=== PATIENT | female | born 1950 | race Caucasian/White ===

== ENCOUNTER → 2017-07-27 10:07 | Outpatient (CLI) | payer MEDICARE, OTHER, SELFPAY ==
--- NOTE | 2017-07-27 10:07 | DT_ITS ---
This patient was seen during an EMR downtime July 27, 2017 - August 03, 2017. This patient may have a combination of paper and electronic documentation or all paper documentation. All documentation is viewable within the e-chart portion of [facility] for each patient visit.
[2017-08-02 09:23] LABS: Anion Gap 8 (5-15); BUN 17 mg/dL (7-18); BUN/Creat Ratio 21.5 RATIO (10-20); Calcium,Total 8.7 mg/dL (8.5-10.1); Chloride 106 mmol/L (98-107); Creatinine, Serum 0.79 mg/dL (0.55-1.02); EST Glomerular Filtration Rate 77 mL/min (>60); Est Glom Filt Rate - Afr Amer 93 mL/min (>60); Glucose 88 mg/dL (74-106); Sodium Level 141 mmol/L (136-145)
== END ==
PROVIDERS: Family Provider Family Medicine; PCP Family Medicine; Visit Provider Family Medicine
DX: I10 Essential (primary) hypertension (principal)
CPT/HCPCS: 36415; 80048

== ENCOUNTER → 2018-01-27 10:05 | Outpatient (CLI) | payer MEDICARE, OTHER, SELFPAY ==
[2018-01-27 12:27] LABS: AST(SGOT) 18 U/L (15-37); Alanine Aminotransfer ALT/SGPT 21 U/L (13-56); Albumin, Serum 3.7 g/dL (3.2-5.0); Alkaline Phosphatase 73 U/L (45-117); Anion Gap 8 (5-15); BUN 16 mg/dL (7-18); BUN/Creat Ratio 20.2 RATIO (10-20); Chloride 108 mmol/L (98-107); Creatinine, Serum 0.79 mg/dL (0.55-1.02); EST Glomerular Filtration Rate 76 mL/min (>60); Est Glom Filt Rate - Afr Amer 92 mL/min (>60); Globulin 3.6 g/dL (2.2-4.2); Glucose 89 mg/dL (74-106); Potassium 4.1 mmol/L (3.5-5.1); Protein, Total 7.3 g/dL (6.4-8.2); Sodium Level 142 mmol/L (136-145)
[2018-01-29 11:56] LABS: C-Peptide 3.8 ng/mL (1.1-4.4)
== END ==
PROVIDERS: Family Provider Family Medicine; PCP Family Medicine; Visit Provider Family Medicine
DX: E78.5 Hyperlipidemia, unspecified (principal); I10 Essential (primary) hypertension
CPT/HCPCS: 36415; 80048; 80076; 84681

== ENCOUNTER → 2018-12-27 14:51 | Outpatient (CLI) | payer MEDICARE, OTHER, SELFPAY ==
[2018-12-27 17:03] LABS: Vitamin D,25 Hydroxy 50.9 ng/mL (29.95-100.01)
== END ==
PROVIDERS: Family Provider Family Medicine; PCP Family Medicine; Referring Provider Nurse Practitioner Family; Visit Provider Nurse Practitioner Family
DX: E55.9 Vitamin D deficiency, unspecified (principal)
CPT/HCPCS: 36415; 82306

== ENCOUNTER → 2019-01-26 10:48 | Outpatient (CLI) | payer MEDICARE, OTHER, SELFPAY ==
[2019-01-26 13:13] LABS: ALB/GLOB Ratio 1.2 RATIO (0.9-2.4); AST(SGOT) 19 U/L (15-37); Alanine Aminotransfer ALT/SGPT 19 U/L (13-56); Albumin, Serum 4.1 g/dL (3.2-5.0); Alkaline Phosphatase 72 U/L (45-117); Anion Gap 7 (5-15); BUN 19 mg/dL (7-18); Calcium,Total 8.9 mg/dL (8.5-10.1); Chloride 107 mmol/L (98-107); Cholesterol 179 mg/dL (200); EST Glomerular Filtration Rate 58 mL/min (>60); Est Glom Filt Rate - Afr Amer 71 mL/min (>60); Globulin 3.5 g/dL (2.2-4.2); Glucose 89 mg/dL (74-106); High Density Lipoprotein 65 mg/dL; Potassium 4.6 mmol/L (3.5-5.1); Protein, Total 7.6 g/dL (6.4-8.2); Sodium Level 139 mmol/L (136-145); Triglycerides 140 mg/dL; Very Low Density Lipoprotein 28 mg/dL (5-40)
== END ==
PROVIDERS: Family Provider Family Medicine; PCP Family Medicine; Referring Provider Family Medicine; Visit Provider Family Medicine
DX: E78.5 Hyperlipidemia, unspecified (principal)
CPT/HCPCS: 36415; 80053; 80061

== ENCOUNTER 2020-06-24 13:29 | Emergency (ER) | payer MEDICARE, OTHER, SELFPAY ==
[2020-06-24 13:31] VITALS: BP 135/104; PULSE 90; RESP 16; TEMP 37.3; O2SAT 94; BMI 39.0
--- NOTE | 2020-06-24 13:50 | RAD_ITS ---
STUDY: X-RAY CHEST REASON FOR EXAM: Female, 70 years old. Dyspnea TECHNIQUE: Single AP portable view of the chest. COMPARISON: None. FINDINGS: The lungs are clear and expanded. There is no demonstrated pleural abnormality. Normal size heart. Normal mediastinum and concepcion. Normal visualized pulmonary arteries. There is atherosclerotic calcification of the aortic arch with tortuosity. Degenerative changes in the visualized thoracic spine. Normal visualized ribs, clavicles, and shoulders. There is no demonstrated abnormality of the visualized soft tissue structures of the upper abdomen. RAD/Chest 1 View (Portable) IMPRESSION: No active pulmonary disease. Electronically Signed: Hany Miller MD at 15:15 EDT Tel , Service support ,
--- NOTE | 2020-06-24 13:50 | EKG12_ITS ---
Test Reason : ANXIETY Blood Pressure : / mmHG Vent. Rate : 074 BPM Atrial Rate : 074 BPM P-R Int : 152 ms QRS Dur : 094 ms QT Int : 402 ms P-R-T Axes : 043 -31 -04 degrees QTc Int : 446 ms Normal sinus rhythm with sinus arrhythmia Left axis deviation Abnormal ECG Confirmed by CELSO MARCANO, JELENA ([id number]), material expeditor CHERRI KHALIL ([id number]) on 06/27/2020 8:50:11 AM Referred By: SHAYE Confirmed By:JELENA HOUSTON MD
--- NOTE | 2020-06-24 13:52 | EX.ED.DYSGE1 ---
HPI History of Present Illness Chief Complaint: Anxiety Informant: patient Onset/Context/Timing Onset: Weeks (3) Quality: Suffocating Location: Generalized Worsened by: Stress Relieved by: Nothing Associated Symptoms Associated Symptoms: Decreased sleep Narrative Narrative: Patient presents with increasing anxiety over the past 3 weeks. Patient states her brother 3 weeks ago. Patient states her anxiety has gradually gotten worse. Patient states she has been having difficulty sleeping over the past week. Patient states when she lays flat she feels like she is suffocating. Patient states that there have been other stressors which has caused her to feel anxious and suffocating. Patient states nothing seems to help. Patient states she called the counseling center who referred her to the emergency department. [facility] Medical History Hypersomnia Hypertension Home Medications armodafinil 250 mg PO DAILY 06/24/20 [History Last Taken Unknown] cephalexin 500 mg PO Q6 #12 capsule 06/24/20 [Rx Last Taken Unknown] hydroxyzine pamoate 25 mg PO QHS PRN PRN #10 capsule 06/24/20 [Rx Last Taken Unknown] lisinopril 10 mg PO BID 06/24/20 [History Last Taken Unknown] metoprolol succinate 50 mg PO BID 06/24/20 [History Last Taken Unknown] Allergy/AdvReac Type Severity Reaction Status Date / Time No Known Allergies Allergy Verified 06/24/20 13:29 no surgical history Social History Smoking Status: Never smoker ROS ROS ED Constitutional Constitutional ED: Denies chills or fever(s) Eyes Eyes: Reports blurry vision; Denies diplopia ENT ENT ED: Denies rhinorrhea or sore throat Cardiovascular Cardiovascular: Denies chest pain or palpitations Respiratory/Chest Respiratory/Chest: Reports dyspnea; Denies cough Gastrointestinal Gastrointestinal: Denies nausea or vomiting Genitourinary Genitourinary ED: Reports urinary frequency; Denies dysuria or hematuria Musculoskeletal Musculoskeletal: Denies back pain or neck pain Integumentary Denies abscess or rash Neurologic Neurologic: Reports headache(s); Denies weakness Psychiatric Psychiatric: Reports anxiety Allergic/Immunologic Allergic/Immunologic ED: Denies mouth swelling or urticaria EXAM Physical Exam Const Vital Signs: 06/24/20 13:31 06/24/20 15:44 Temperature 99.1 F Temperature Source Temporal Pulse Rate 90 81 Respiratory Rate 16 16 Blood Pressure 135/104 H 156/89 H Blood Pressure Mean 114 111 Pulse Ox 94 96 Oxygen Delivery Method Room Air Room Air Positive well nourished, well developed and obese General Appearance ED: well developed Nutritional Appearance: obese HEENT Reports moist mucous membranes Neck supple and no JVD Resp normal respiratory effort and clear to auscultation bilaterally Cardio regular rate and regular rhythm GI normal to inspection, nondistended, normoactive bowel sounds and non-tender Palpation: soft Neuro oriented x3, CN's II-XII intact bilaterally and no sensory deficits noted Sensorium / Orientation: alert Motor Exam: strength 5/5 throughout Psych mental status grossly normal Mood & Affect: anxious and tearful MDM MDM MDM Narrative Medical decision making narrative: CBC and comprehensive metabolic profile were obtained and were within normal limits. PT with INR and PTT were normal. Portable 1 view chest x-ray was obtained. On my interpretation, lung whitney are clear. There is normal cardiac silhouette. Bony thorax is normal. There is no acute process noted. Radiologist also interpreted the x-ray and agrees. D-dimer was slightly elevated at 0.72. Because of this CTA of the chest was obtained. There is no evidence of pulmonary embolism. There is no acute infiltrate. Urinalysis showed leukocyte esterase of 500 with positive nitrites and 5-10 white blood cells and 1+ bacteria. Patient was given a prescription for a short course of Keflex. Patient was also given a prescription for a short course of Vistaril to take at bedtime to help with sleep. Patient was instructed to follow-up with her primary care physician in 3 to 5 days. Patient understood and was agreeable with the plan. All questions were answered. Lab Data Attestation: I reviewed the patient's lab results. Labs: Laboratory Results - last 24 hr 06/24/20 06/24/20 06/24/20 13:55 14:10 14:10 WBC 6.5 RBC 4.36 Hgb 13.4 Hct 41.4 MCV 95.0 MCH 30.7 MCHC 32.4 RDW Std Deviation 47.5 H RDW Coeff of Daija 13.5 Plt Count 259 MPV 9.9 Immature Gran % (Auto) 0.300 Neut % (Auto) 69.2 Lymph % (Auto) 21.9 [place] % (Auto) 8.0 Eos % (Auto) 0.3 Baso % (Auto) 0.3 Absolute Neuts (auto) 4.5 Absolute Lymphs (auto) 1.43 Nucleated RBC % 0 PT 12.7 INR 1.0 APTT 27.5 D-Dimer Quant (PE/DVT) 0.72 H* Sodium Potassium Chloride Carbon Dioxide Anion Gap BUN Creatinine Estim Creat Clear Calc Est GFR (MDRD) Af Amer Est GFR (MDRD) Non-Af BUN/Creatinine Ratio Glucose Calcium Total Bilirubin AST ALT Alkaline Phosphatase Troponin I Total Protein Albumin Globulin Albumin/Globulin Ratio Urine Color Yellow Urine Clarity Clear Urine pH 5.0 Ur Specific [place] 1.010 Urine Protein Negative Urine Glucose (UA) Normal Urine Ketones Negative Urine Occult Blood 10 H Urine Nitrite Positive H Urine Bilirubin Negative Urine Urobilinogen Normal Ur Leukocyte Esterase 500 H Urine RBC 0 SEEN Urine WBC 5-10 SEEN Ur Squamous Epith Cells 0 SEEN Urine Bacteria 1+ Urine Mucus 0 SEEN 06/24/20 14:10 WBC RBC Hgb Hct MCV MCH MCHC RDW Std Deviation RDW Coeff of [place] Plt Count MPV Immature Gran % (Auto) Neut % (Auto) Lymph % (Auto) [place] % (Auto) Eos % (Auto) Baso % (Auto) Absolute Neuts (auto) Absolute Lymphs (auto) Nucleated RBC % PT INR APTT D-Dimer Quant (PE/DVT) Sodium 138 Potassium 4.0 Chloride 107 Carbon Dioxide 24.0 Anion Gap 7 BUN 20 H Creatinine 0.90 Estim Creat Clear Calc 53.67 Est GFR (MDRD) Af Amer 80 Est GFR (MDRD) Non-Af 66 BUN/Creatinine Ratio 22.3 H Glucose 101 Calcium 9.3 Total Bilirubin 0.30 AST 20 ALT 24 Alkaline Phosphatase 68 Troponin I < 0.015 Total Protein 8.2 Albumin 4.3 Globulin 3.9 Albumin/Globulin Ratio 1.1 Urine Color Urine Clarity Urine pH Ur Specific [place] Urine Protein Urine Glucose (UA) Urine Ketones Urine Occult Blood Urine Nitrite Urine Bilirubin Urine Urobilinogen Ur Leukocyte Esterase Urine RBC Urine WBC Ur Squamous Epith Cells Urine Bacteria Urine Mucus Radiography Chest X-Ray - ED: 1 View, Read by ED Physician, Read by Radiologist and Normal Diagnostic Testing: Radiology Impression Chest X-Ray 06/24/20 13:50 IMPRESSION: No active pulmonary disease. Electronically Signed: Hany Miller MD at 15:15 EDT Tel , Service support , Chest CTA 06/24/20 14:34 IMPRESSION: 1. No evidence of pulmonary embolism or aortic dissection. 2. No acute infiltrate or pleural effusions. 3. Left renal cyst. Electronically Signed: Hany Miller MD at 15:37 EDT Tel , Service support , EKG Initial EKG: Attestation: I personally reviewed and interpreted this EKG as follows: Interpretation: Sinus Rhythm (74), No Acute Injury Pattern and Sinus Arrythmia Comments: Left axis deviation Prior EKG tracings: not available for review Discharge Plan Triage Chief Complaint: Anxiety ED Provider: Curtis Abel Dx/Rx/DC Orders Clinical Impression: Anxiety, Urinary tract infection Instructions: ED Anxiety Reaction, ED Bladder Infection, Female (Adult) Prescriptions: New cephalexin [cephalexin] 500 MG capsule 500 mg PO Q6 Qty: 12 RF: 0 hydroxyzine pamoate [hydroxyzine pamoate] 25 MG capsule 25 mg PO QHS PRN PRN (Reason: Anxiety) Qty: 10 RF: 0 No Action lisinopril 10 mg Tablet 10 mg PO BID RF: 0 armodafinil 250 mg Tablet 250 mg PO DAILY RF: 0 metoprolol succinate 50 mg Capsule,Sprinkle,Er 24hr 50 mg PO BID RF: 0 Primary Care Provider: Greyson Isabel Referrals: Greyson Isabel MD [Primary Care Provider] - 3-5 Days Disposition Disposition: Home, self care
[2020-06-24 14:19] LABS: Mucous, Urine 0 SEEN /hpf (<or=2+); Red Blood Cells-Urine 0 SEEN /hpf (0-5); Squamous Epithelial Cells - UA 0 SEEN /hpf (5-10)
[2020-06-24 14:20] LABS: Absolute Lymphocyte Count 1.43 X10^3/uL (0.83-4.51); Absolute Neutrophil Count 4.5 X10^3/uL (2.0-7.7); Basophil# 0.02 X10^3/uL; Basophil% 0.3 % (0-1); Eosinophil# 0.02 X10^3/uL; Eosinophils% 0.3 % (0-5); Hematocrit 41.4 % (37-47); Hemoglobin 13.4 g/dL (12.0-15.0); Lymphocyte # 1.43 X10^3/ul (0.83-4.51); Lymphocyte % 21.9 % (19-41); Mean Corp Hgb Conc 32.4 g/dL (32-36); Mean Corpuscular Hgb 30.7 pg (27.0-32.0); Mean Platelet Vol. 9.9 fl (6.2-12.0); Monocyte# 0.52 X10^3/uL; NRBC Flagged by Analyzer 0 % (0-5); Neutrophil # 4.51 X10^3/uL (2.7-7.7); Neutrophil % 69.2 % (47-70); Platelet Count 259 K/mm3 (150-450); RBC Distribution Width CV 13.5 % (11.6-14.6); RBC Distribution Width SD 47.5 fl (35.1-43.9); Red Blood Count 4.36 M/mm3 (4.2-5.4); White Blood Count 6.5 K/mm3 (4.4-11.0)
[2020-06-24 14:20] LABS: Color, Urine Yellow (Yellow); Glucose, Dipstick Normal (Normal); Ketone-Dipstick Negative (Negative); Leukocyte Esterase-Dipstick 500 /ul (Negative); Nitrite-Dipstick Positive (Negative); Occult Blood-Urine 10 /ul (Negative); Protein-Dipstick Negative (Negative); Urine Bilirubin Dipstick Negative (Negative); Urine Clarity Clear (Clear); Urine Urobilinogen Normal (Normal)
[2020-06-24 14:26] LABS: White Blood Cells 5-10 SEEN /hpf (0-5)
[2020-06-24 14:27] LABS: Bacteria 1+ /hpf (None Seen)
[2020-06-24 14:28] LABS: Prothrombin Time (Protime)PT. 12.7 SECONDS (11.7-14.9)
[2020-06-24 14:29] LABS: Partial Thromboplast Time 27.5 Seconds (24.1-36.2)
[2020-06-24 14:32] LABS: D-Dimer Quantitative (DVT/PE) 0.72 FEU/ug/m (0.27-0.49)
--- NOTE | 2020-06-24 14:34 | CT_ITS ---
STUDY: CTA CHEST REASON FOR EXAM: Female, 70 years old. Elevated D-dimer RADIATION DOSAGE (If Supplied By Facility): CTDIvol = ( 13.85 ) mGy, DLP = ( 568.35 ) mGycm TECHNIQUE: The examination was performed with the intravenous administration of IV 100mL Isovue-370. Post-processing of the angiographic images was performed, with multiplanar reformation and 3D reconstruction. Individualized dose optimization techniques were used for this CT. COMPARISON: None. FINDINGS: Normal enhancement of the main pulmonary artery and right and left pulmonary arteries. Normal enhancement of the bilateral peripheral pulmonary arteries. There is no demonstrated pulmonary embolism. There is atherosclerotic tortuosity of the aortic arch and descending thoracic aorta. There is no demonstrated aortic dissection. Normal heart and pericardium. Normal mediastinum. Normal hilar regions. Normal visualized trachea and bronchi. The lungs are well expanded. There are no pulmonary infiltrates. There are no pleural effusions. Normal chest wall structures. There are degenerative changes of thoracic spine. The visualized portions of the upper abdomen demonstrate 4.5 cm left renal cyst. CT/CTA Chest W/WO Contrast IMPRESSION: 1. No evidence of pulmonary embolism or aortic dissection. 2. No acute infiltrate or pleural effusions. 3. Left renal cyst. Electronically Signed: Hany Miller MD at 15:37 EDT Tel , Service support ,
[2020-06-24 14:50] LABS: ALB/GLOB Ratio 1.1 RATIO (0.9-2.4); AST(SGOT) 20 U/L (15-37); Alanine Aminotransfer ALT/SGPT 24 U/L (13-56); Albumin, Serum 4.3 g/dL (3.2-5.0); Alkaline Phosphatase 68 U/L (45-117); Anion Gap 7 (5-15); BUN 20 mg/dL (7-18); BUN/Creat Ratio 22.3 RATIO (10-20); Calcium,Total 9.3 mg/dL (8.5-10.1); Chloride 107 mmol/L (98-107); EST Glomerular Filtration Rate 66 mL/min (>60); Est Glom Filt Rate - Afr Amer 80 mL/min (>60); Estimated Creatinine Clearance 53.67 ml/min; Globulin 3.9 g/dL (2.2-4.2); Glucose 101 mg/dL (74-106); Protein, Total 8.2 g/dL (6.4-8.2); Sodium Level 138 mmol/L (136-145)
[2020-06-24 15:44] VITALS: BP 156/89; PULSE 81; RESP 16; O2SAT 96
[2020-06-24 16:29] VITALS: BP 168/81; RESP 16; O2SAT 99
== END 2020-06-24 16:30 | disposition home or self-care (01) ==
PROVIDERS: Emergency Provider Emergency Medicine; PCP Family Medicine
DX: F41.9 Anxiety disorder, unspecified (principal); N39.0 Urinary tract infection, site not specified; N28.1 Cyst of kidney, acquired; I10 Essential (primary) hypertension; G47.10 Hypersomnia, unspecified; Z79.899 Other long term (current) drug therapy; R94.31 Abnormal electrocardiogram [ECG] [EKG]; E66.9 Obesity, unspecified
CPT/HCPCS: 71045; 71275; 80053; 81001; 84484; 85025; 85379; 85610; 85730; 93005; 99284; Q9967

== ENCOUNTER → 2020-10-25 11:22 | Outpatient (CLI) | payer MEDICARE, OTHER, SELFPAY ==
[2020-10-25 15:30] LABS: Anion Gap 7 (5-15); BUN 15 mg/dL (7-18); BUN/Creat Ratio 20.8 RATIO (10-20); Calcium,Total 9.3 mg/dL (8.5-10.1); Chloride 106 mmol/L (98-107); Cholesterol 295 mg/dL (200); Creatinine, Serum 0.72 mg/dL (0.55-1.02); EST Glomerular Filtration Rate 85 mL/min (>60); Est Glom Filt Rate - Afr Amer 103 mL/min (>60); Glucose 92 mg/dL (74-106); High Density Lipoprotein 56 mg/dL; Potassium 3.9 mmol/L (3.5-5.1); Sodium Level 139 mmol/L (136-145); Triglycerides 186 mg/dL; Very Low Density Lipoprotein 37 mg/dL (5-40)
== END ==
PROVIDERS: PCP Family Medicine; Referring Provider Family Medicine; Visit Provider Family Medicine
DX: E78.5 Hyperlipidemia, unspecified (principal)
CPT/HCPCS: 36415; 80048; 80061

== ENCOUNTER → 2021-02-01 11:32 | Outpatient (CLI) | payer MEDICARE, OTHER, SELFPAY | PROVIDERS: PCP Family Medicine; Referring Provider Family Medicine; Visit Provider Family Medicine | DX: U07.1 COVID-19 (principal) | CPT/HCPCS: 36415; 86769 ==

== ENCOUNTER → 2021-02-01 12:45 | Outpatient (CLI) | payer MEDICARE, OTHER, SELFPAY ==
--- NOTE | 2021-02-01 12:49 | CT_ITS ---
STUDY: CT BRAIN WITH AND WITHOUT CONTRAST REASON FOR EXAM: Female, 70 years old. PULSATILE TINNITUS RADIATION DOSAGE (If Supplied By Facility): CTDIvol = ( 26.76 ) mGy, DLP = ( 1207.08 ) mGycm TECHNIQUE: Transaxial CT imaging of the brain was performed pre and post contrast administration. The examination was performed with intravenous administration of IV 100mL Isovue-370. Individualized dose optimization techniques were used for this CT. COMPARISON: None. FINDINGS: Normal soft tissue structures. Normal calvarium. Normal size ventricles and extra-axial spaces for the patient''s age. Normal white matter tracts of the cerebral hemispheres. Normal basal ganglia and thalami. Normal brainstem. Normal cerebellum. There is no intracranial hemorrhage. There are no findings of an acute ischemic infarction. Normal visualized paranasal sinuses. CT/CTA Head W/WO Contrast IMPRESSION: Normal unenhanced and enhanced CT scan of the brain. Electronically Signed: Victor Hugo Lan MD at 13:47 EST Tel , Service support ,
[2021-02-01 13:15] LABS: CREATININE FINGERSTICK 0.9 mg/dL (0.55-1.02); EGFR FINGERSTICK > 60.0000 mL/min (>60)
== END ==
PROVIDERS: PCP Family Medicine; Referring Provider Psychiatry & Neurology Neurology; Visit Provider Psychiatry & Neurology Neurology
DX: H93.19 Tinnitus, unspecified ear (principal); U07.1 COVID-19
CPT/HCPCS: 36415; 70496; 86769; Q9967

== ENCOUNTER 2021-04-25 10:08 | Outpatient (CLI) | payer MEDICARE, OTHER, SELFPAY ==
[2021-04-25 13:06] LABS: Anion Gap 6 (5-15); BUN 30 mg/dL (7-18); Calcium,Total 9.4 mg/dL (8.5-10.1); Chloride 109 mmol/L (98-107); Cholesterol 131 mg/dL (200); Creatinine, Serum 0.79 mg/dL (0.55-1.02); EST Glomerular Filtration Rate 76 mL/min (>60); Est Glom Filt Rate - Afr Amer 92 mL/min (>60); Glucose 94 mg/dL (74-106); High Density Lipoprotein 59 mg/dL; Potassium 4.4 mmol/L (3.5-5.1); Sodium Level 139 mmol/L (136-145); Triglycerides 81 mg/dL; Very Low Density Lipoprotein 16 mg/dL (5-40)
== END 2021-04-25 23:59 | disposition home or self-care (01) ==
LOC: MTLAB 10:10
PROVIDERS: PCP Family Medicine; Referring Provider Family Medicine; Visit Provider Family Medicine
DX: E78.5 Hyperlipidemia, unspecified (principal)
CPT/HCPCS: 36415; 80048; 80061

== ENCOUNTER → 2021-10-30 | Outpatient (CLI) | payer MEDICARE, OTHER, SELFPAY ==
--- NOTE | 2021-10-30 10:50 | RAD_ITS ---
STUDY: X-RAY - PELVIS AND BILATERAL HIPS REASON FOR EXAM: Female, 71 years old. Right hip pain. TECHNIQUE: AP view of the pelvis.? 2 views of the right hip, and 2 views of the left hip were obtained. COMPARISON: None. FINDINGS: There is a non-specific bowel gas pattern. Normal visualized soft tissue structures. Normal bilateral iliac wings, sacroiliac joints and visualized sacrum. Normal bilateral superior and inferior pubic rami. Normal pubic symphysis. Normal bilateral ischial tuberosities. Normal visualized right femoral head. Normal right acetabulum. Normal right hip joint. Normal visualized left femoral head. Normal left acetabulum. Normal left hip joint. On a single view 0.6 x 0.5 cm density inferior to the left femoral neck. This could represent a soft tissue calcification or loose body, the latter if the patient has left hip pain. RAD/Hips B/L min 2 views w/ Pelvis IMPRESSION: No acute findings in the pelvis or bilateral hips. Normal right hip. Questionable small loose body left hip versus incidental soft tissue calcification. Electronically Signed: Pavel Negrete MD at 2:49 EDT Reading Location ID and State: [id number] / , Service support ,
[2021-10-30 12:26] LABS: ALB/GLOB Ratio 1.1 RATIO (0.9-2.4); AST(SGOT) 14 U/L (15-37); Alanine Aminotransfer ALT/SGPT 23 U/L (13-56); Albumin, Serum 3.9 g/dL (3.2-5.0); Alkaline Phosphatase 72 U/L (45-117); Anion Gap 8 (5-15); BUN 27 mg/dL (7-18); BUN/Creat Ratio 30.2 RATIO (10-20); Chloride 111 mmol/L (98-107); Cholesterol 143 mg/dL (200); EST Glomerular Filtration Rate 66 mL/min (>60); Est Glom Filt Rate - Afr Amer 80 mL/min (>60); Globulin 3.7 g/dL (2.2-4.2); Glucose 98 mg/dL (74-106); High Density Lipoprotein 55 mg/dL; Potassium 4.5 mmol/L (3.5-5.1); Protein, Total 7.6 g/dL (6.4-8.2); Sodium Level 141 mmol/L (136-145); Triglycerides 85 mg/dL; Very Low Density Lipoprotein 17 mg/dL (5-40)
== END | disposition home or self-care (01) ==
PROVIDERS: PCP Family Medicine; Referring Provider Family Medicine; Visit Provider Family Medicine
DX: M25.551 Pain in right hip (principal); E78.5 Hyperlipidemia, unspecified
CPT/HCPCS: 36415; 73521; 80053; 80061

== ENCOUNTER → 2023-01-20 | Outpatient (CLI) | payer MEDICARE, OTHER, SELFPAY ==
[2023-01-20 13:07] LABS: Absolute Lymphocyte Count 1.71 X10^3/uL (0.83-4.51); Absolute Neutrophil Count 2.8 X10^3/uL (2.0-7.7); Basophil# 0.03 X10^3/uL; Basophil% 0.6 % (0-1); Eosinophil# 0.07 X10^3/uL; Eosinophils% 1.4 % (0-5); Hematocrit 41.6 % (37-47); Hemoglobin 13.4 g/dL (12.0-15.0); Lymphocyte # 1.71 X10^3/ul (0.83-4.51); Lymphocyte % 33.4 % (19-41); Mean Corp Hgb Conc 32.2 g/dL (32-36); Mean Corpuscular Hgb 31.3 pg (27.0-32.0); Mean Corpuscular Volume 97.2 fL (81-99); Mean Platelet Vol. 10.3 fl (6.2-12.0); Monocyte# 0.53 X10^3/uL; Monocyte% 10.4 % (0-10); NRBC Flagged by Analyzer 0 % (0-5); Neutrophil # 2.77 X10^3/uL (2.7-7.7); Platelet Count 242 K/mm3 (150-450); RBC Distribution Width CV 13.5 % (11.6-14.6); RBC Distribution Width SD 48.3 fl (35.1-43.9); Red Blood Count 4.28 M/mm3 (4.2-5.4); White Blood Count 5.1 K/mm3 (4.4-11.0)
[2023-01-20 13:10] LABS: Color, Urine Yellow (Yellow); Glucose, Dipstick Normal (Normal); Ketone-Dipstick Negative (Negative); Leukocyte Esterase-Dipstick Negative /ul (Negative); Nitrite-Dipstick Negative (Negative); Occult Blood-Urine Negative /ul (Negative); Protein-Dipstick Negative (Negative); Urine Bilirubin Dipstick Negative (Negative); Urine Clarity Clear (Clear); Urine Urobilinogen Normal (Normal)
[2023-01-20 13:46] LABS: ALB/GLOB Ratio 1.1 RATIO (0.9-2.4); AST(SGOT) 16 U/L (15-37); Alanine Aminotransfer ALT/SGPT 22 U/L (13-56); Alkaline Phosphatase 54 U/L (45-117); Anion Gap 6 (5-15); BUN 22 mg/dL (7-18); CRP, High Sensitivity Cardiac 2.42 mg/L; Calcium,Total 9.1 mg/dL (8.5-10.1); Chloride 106 mmol/L (98-107); Cholesterol 328 mg/dL (200); EST Glomerular Filtration Rate 58 mL/min (>60); Est Glom Filt Rate - Afr Amer 70 mL/min (>60); Globulin 3.8 g/dL (2.2-4.2); Glucose 93 mg/dL (74-106); High Density Lipoprotein 59 mg/dL; Potassium 4.4 mmol/L (3.5-5.1); Protein, Total 7.8 g/dL (6.4-8.2); Sodium Level 137 mmol/L (136-145); T3 Uptake 35 % (30-39); Triglycerides 223 mg/dL; Very Low Density Lipoprotein 45 mg/dL (5-40)
[2023-01-20 13:49] LABS: Insulin 20.3 mU/L (2.6-37.6); Vitamin D,25 Hydroxy 37.9 ng/mL
[2023-01-20 15:00] LABS: T4 Free Direct 0.89 ng/dL (0.76-1.46); T4 Total, Thyroxin 8.8 ug/dL (4.8-13.9); T7 / Free Thyroxin Index 3.1 (1.4-4.5); Thyroid Stim Hormone (TSH) 1.81 uIU/mL (0.358-3.74)
== END | disposition home or self-care (01) ==
PROVIDERS: PCP Family Medicine
DX: Z00.00 Encounter for general adult medical examination without abnormal findings (principal); E78.5 Hyperlipidemia, unspecified; I10 Essential (primary) hypertension; E55.9 Vitamin D deficiency, unspecified; G72.49 Other inflammatory and immune myopathies, not elsewhere classified
CPT/HCPCS: 36415; 80053; 80061; 81002; 82274; 82306; 83525; 84436; 84439; 84443; 84479; 85025; 86141

== ENCOUNTER 2023-04-21 13:00 | Inpatient (IN) | payer MEDICARE, OTHER, SELFPAY ==
[2023-04-21] VITALS (8 sets, daily range): BP systolic 105–213; BP diastolic 53–99; PULSE 60–107; RESP 17–22; TEMP 36.5–36.9; O2SAT 93–97; BMI 43.1; BMI 42.3
--- NOTE | 2023-04-21 13:24 | EKG12_ITS ---
Test Reason : SOB Blood Pressure : / mmHG Vent. Rate : 084 BPM Atrial Rate : 084 BPM P-R Int : 160 ms QRS Dur : 088 ms QT Int : 382 ms P-R-T Axes : 040 -29 006 degrees QTc Int : 451 ms Normal sinus rhythm Minimal voltage criteria for LVH, may be normal variant ( R in aVL ) Borderline ECG Confirmed by NAYELY MARCANO, SUGEY ([id number]), film or videotape editor OLGA SIMS ([id number]) on 04/27/2023 10:09:21 AM Referred By: Confirmed By:VINNY ADLER MD
--- NOTE | 2023-04-21 13:25 | ED.VIS.DYS ---
HPI History of Present Illness Chief Complaint: Shortness of Breath Detail of Chief Complaint: Shortness of breath Informant: patient Narrative Narrative: Patient presents with shortness of breath and hypertension. She tells me that she has been short of breath with activity and exertion for about a week. Patient complains of bilateral leg edema. She denies chest pain. Also has noticed that her blood pressures have been in the 180s systolic. She has no heart history. No history of CHF. Patient takes lisinopril 20 mg daily for her blood pressure. Patient tells me she has been compliant with her medications. She denies recent illness. Patient was having a virtual visit with a sleep specialist because she has sleep apnea and has been unable to lay flat and sleep at night. She was referred to the emergency department. [facility] Medical History Hypersomnia Hypertension Home Medications ascorbate calcium (vitamin C) 500 mg tablet 500 mg PO DAILY 04/21/23 [History Last Taken Unknown] cholecalciferol (vitamin D3) 50 mcg (2,000 unit) tablet 2,000 unit PO DAILY 04/21/23 [History Last Taken Unknown] coenzyme Q10 10 mg capsule (Co Q-10) 10 mg PO DAILY 04/21/23 [History Last Taken Unknown] lisinopril 20 mg tablet 20 mg PO DAILY 04/21/23 [History Last Taken 04/20/23] magnesium 250 mg tablet 500 mg PO BID 04/21/23 [History Last Taken Unknown] multivitamin (Daily Multi-Vitamin tablet) 1 tab PO DAILY 04/21/23 [History Last Taken Unknown] Allergy/AdvReac Type Severity Reaction Status Date / Time No Known Allergies Allergy Verified 04/21/23 13:02 Social History Smoking Status: Never smoker ROS ROS ED Review of Systems ROS Unobtainable: other Constitutional Constitutional ED: Reports lethargy; Denies chills, fever(s), sweats or weight loss Eyes Eyes: Denies blurry vision, change in vision or diplopia ENT ENT ED: Denies rhinorrhea or sore throat Cardiovascular Cardiovascular: Denies chest pain, orthopnea or racing heartbeat Respiratory/Chest Respiratory/Chest: Reports dyspnea and dyspnea on exertion; Denies cough, orthopnea or sputum Gastrointestinal Gastrointestinal: Denies abdominal pain, diarrhea, nausea or vomiting Genitourinary Genitourinary ED: Denies dysuria, hematuria or urinary frequency Musculoskeletal Musculoskeletal: Denies arthralgias, back pain, myalgias or neck pain Integumentary Reports other Details: Bilateral leg edema ; Denies abscess, Abrasions or rash Neurologic Neurologic: Denies headache(s) or weakness Psychiatric Psychiatric: Denies anxiety, depression or suicidal thoughts Endocrine Endocrinology: Denies polydipsia, polyphagia or polyuria Hematologic/Lymphatic Hematologic/Lymphatic: Denies easy bleeding, easy bruising or lymphadenopathy Allergic/Immunologic Allergic/Immunologic ED: Denies mouth swelling, tongue swelling or urticaria EXAM Physical Exam Const Vital Signs: 04/21/23 13:02 04/21/23 13:24 04/21/23 13:25 Temperature 97.7 F L Temperature Source Temporal Pulse Rate 107 H Respiratory Rate 22 H Respiratory Effort Short of Breath Short of Breath Respiratory Pattern Tachypnea Tachypnea Blood Pressure 213/99 H Blood Pressure Mean 137 Pulse Ox 95 Oxygen Delivery Method Room Air Room Air 04/21/23 14:01 04/21/23 15:21 Temperature 97.8 F Temperature Source Pulse Rate 81 78 Respiratory Rate 21 H 17 Respiratory Effort Respiratory Pattern Blood Pressure 189/79 H 196/78 H Blood Pressure Mean 115 117 Pulse Ox 93 95 Oxygen Delivery Method Room Air Positive well nourished and well developed General Appearance ED: well developed and NAD HEENT Reports TM's clear and moist mucous membranes normocephalic and atraumatic; Negative for trauma or tenderness Tympanic Membrane ED: Yes TM's clear Eyes PERRL and EOMs intact bilaterally General Eye ED: Negative for pale conjunctiva or scleral icterus Neck no lymphadenopathy, supple and no JVD General: Negative for tenderness Chest Wall inspection of chest normal and palpation of chest normal Chest: Negative for tenderness Resp normal respiratory effort Resp Narrative: Few rales in bases. No accessory muscle use or retractions. No conversational dyspnea. Effort and Inspection: Negative for respiratory distress or pain with movement Auscultation: rales; Negative for rhonchi, wheezes or diminished lung sounds Cardio regular rate, regular rhythm, S1 normal heart sound, S2 normal heart sound and no murmurs Peripheral Pulses: pulses 2+ throughout GI normal to inspection, nondistended, normoactive bowel sounds, soft to palpation, non-tender, non-distended and no masses Back/Spine no CVA tenderness and no thoracic nor lumbar tenderness Extremity normal to inspection Extremity Narrative: +2 edema both lower extremities to mid thigh. General Extremety ED: Negative for edema General Extremity: Negative for edema Neuro oriented x3, CN's II-XII intact bilaterally, no sensory deficits noted and gait normal Sensorium / Orientation: awake, alert, oriented to person, oriented to place and oriented to time Motor Exam: strength 5/5 throughout and strength abnormal Psych mental status grossly normal Skin no rashes or lesions noted and no wounds MDM MDM MDM Narrative Medical decision making narrative: Patient presents with hypertension and shortness of breath that is exertional. The differential would be acute CHF versus PE versus acute coronary syndrome. Patient had an EKG obtained on arrival showed a sinus rhythm with rate of 84 bpm with LVH criteria. CBC with differential, 7.1 with hemoglobin 12 and platelet count 214. Chemistries unremarkable. Troponin was elevated 73 and BNP was elevated at 244. D-dimer also elevated 1.9 therefore CTA of the chest was obtained which was negative for PE or dissection. There was some faint increased markings in several lobes which may be indicative of atelectasis or early infiltrate. Clinically I do not feel she has an infectious process. Patient was ordered Lasix 40 mg IV. Discussed case with hospitalist will evaluate patient for admission for new onset CHF as well as hypertension and non-STEMI. Lab Data Attestation: I reviewed the patient's lab results. Labs: Laboratory Results - last 24 hr 04/21/23 13:20 WBC 7.1 RBC 3.86 L Hgb 12.0 Hct 36.2 L MCV 93.8 MCH 31.1 MCHC 33.1 RDW Std Deviation 47.9 H RDW Coeff of [place] 14.1 Plt Count 214 MPV 10.0 Immature Gran % (Auto) 0.700 Neut % (Auto) 66.1 Lymph % (Auto) 21.7 [place] % (Auto) 10.1 H Eos % (Auto) 1.0 Baso % (Auto) 0.4 Absolute Neuts (auto) 4.7 Absolute Lymphs (auto) 1.54 Nucleated RBC % 0 D-Dimer Quant (PE/DVT) 1.90 H* Sodium 142 Potassium 4.0 Chloride 112 H Carbon Dioxide 25.0 Anion Gap 5 BUN 15 Creatinine 0.80 Estim Creat Clear Calc 81.91 Est GFR (MDRD) Af Amer 91 Est GFR (MDRD) Non-Af 75 BUN/Creatinine Ratio 18.8 Glucose 96 Calcium 9.6 Troponin I High Sens 73 H B-Natriuretic Peptide 244.7 H Radiography Diagnostic Testing: Clinical Impression(s) from Imaging Studies Chest X-Ray 04/21/23 13:45 IMPRESSION: Normal x-ray examination of the chest. Electronically Signed: Huber Gilbert MD at 14:07 EST , Chest CTA 04/21/23 14:02 IMPRESSION: No evidence of pulmonary embolism. Increased markings in the superior segment of the right lower lobe as well as in the posterior aspect of the left upper lobe suggestive of either atelectasis and/or early infiltrate. Electronically Signed: Huber Gilbert MD at 15:04 EST , 1 view chest x-ray obtained interpreted by myself as no evidence of infiltrate or pneumothorax or acute process. Radiology in agreement. EKG Initial EKG: Attestation: I personally reviewed and interpreted this EKG as follows: Comments: Sinus rhythm with rate of 84 bpm with LVH criteria Discharge Plan Dx/Rx/DC Orders Clinical Impression: Exertional dyspnea, Non-ST elevated myocardial infarction (non-STEMI), New onset of congestive heart failure, Hypertension Disposition Disposition: Acute Care Hospital [facility]
[2023-04-21 13:39] LABS: Absolute Lymphocyte Count 1.54 X10^3/uL (0.83-4.51); Absolute Neutrophil Count 4.7 X10^3/uL (2.0-7.7); Basophil# 0.03 X10^3/uL; Basophil% 0.4 % (0-1); Eosinophil# 0.07 X10^3/uL; Hematocrit 36.2 % (37-47); Lymphocyte # 1.54 X10^3/ul (0.83-4.51); Lymphocyte % 21.7 % (19-41); Mean Corp Hgb Conc 33.1 g/dL (32-36); Mean Corpuscular Hgb 31.1 pg (27.0-32.0); Mean Corpuscular Volume 93.8 fL (81-99); Monocyte# 0.72 X10^3/uL; Monocyte% 10.1 % (0-10); NRBC Flagged by Analyzer 0 % (0-5); Neutrophil # 4.69 X10^3/uL (2.7-7.7); Neutrophil % 66.1 % (47-70); Platelet Count 214 K/mm3 (150-450); RBC Distribution Width CV 14.1 % (11.6-14.6); RBC Distribution Width SD 47.9 fl (35.1-43.9); Red Blood Count 3.86 M/mm3 (4.2-5.4); White Blood Count 7.1 K/mm3 (4.4-11.0)
--- NOTE | 2023-04-21 13:45 | RAD_ITS ---
STUDY: X-RAY CHEST REASON FOR EXAM: Female, 73 years old. Dyspnea TECHNIQUE: Single AP portable view of the chest. COMPARISON: Comparison is made with prior study dated June 24, 2020. FINDINGS: EKG electrodes are seen. The lungs are clear and expanded. There is no demonstrated pleural abnormality. Normal size heart. Normal mediastinum and concepcion. Normal visualized pulmonary arteries. Normal visualized aortic arch and descending thoracic aorta. Normal visualized thoracic spine. Normal visualized ribs, clavicles, and shoulders. There is no demonstrated abnormality of the visualized soft tissue structures of the upper abdomen. RAD/Chest 1 View (Portable) IMPRESSION: Normal x-ray examination of the chest. Electronically Signed: Huber Gilbert MD at 14:07 EST ,
[2023-04-21 13:59] LABS: BNP,B-Type NATRIURETIC PEPTIDE 244.7 pg/mL (0-100)
--- NOTE | 2023-04-21 14:02 | CT_ITS ---
STUDY: CTA CHEST REASON FOR EXAM: Female, 73 years old. Dyspnea, elevated D-dimer RADIATION DOSAGE (If Supplied By Facility): CTDIvol = ( 18.60 ) mGy, DLP = ( 572.99 ) mGycm TECHNIQUE: The examination was performed with the intravenous administration of IV 100mL Isovue-370. Post-processing of the angiographic images was performed, with multiplanar reformation and 3D reconstruction. Individualized dose optimization techniques were used for this CT. COMPARISON: Comparison is made with prior study dated June 24, 2020 and prior chest radiograph done earlier in the day. FINDINGS: Normal enhancement of the main pulmonary artery and right and left pulmonary arteries. Normal enhancement of the bilateral peripheral pulmonary arteries. There is no demonstrated pulmonary embolism. There is atherosclerotic calcification of the aortic arch with tortuosity. There is no demonstrated aortic dissection. Normal heart and pericardium. No coronary artery calcification is seen. Normal mediastinum. Normal hilar regions. Normal visualized trachea and bronchi. The lungs are well expanded. Minimal increased markings in the superior segment of the right lower lobe suggestive of either atelectasis and/or early infiltrate. Mild increased markings are also seen in the posterior aspect of the left upper lobe abutting the left major fissure. Normal pleura. Normal chest wall structures. There are degenerative changes of thoracic spine. There is a 4 cm x 4.4 cm cyst in the upper lateral portion of the left kidney. CT/CTA Chest W/WO Contrast IMPRESSION: No evidence of pulmonary embolism. Increased markings in the superior segment of the right lower lobe as well as in the posterior aspect of the left upper lobe suggestive of either atelectasis and/or early infiltrate. Electronically Signed: Huber Gilbert MD at 15:04 EST ,
[2023-04-21 14:08] LABS: Anion Gap 5 (5-15); BUN 15 mg/dL (7-18); BUN/Creat Ratio 18.8 RATIO (10-20); Calcium,Total 9.6 mg/dL (8.5-10.1); Chloride 112 mmol/L (98-107); EST Glomerular Filtration Rate 75 mL/min (>60); Est Glom Filt Rate - Afr Amer 91 mL/min (>60); Estimated Creatinine Clearance 81.91 ml/min; Glucose 96 mg/dL (74-106); Sodium Level 142 mmol/L (136-145); Troponin-I HS 73 pg/mL (3.0-54.0)
--- NOTE | 2023-04-21 14:15 | ED.RN ---
This RN discussed getting a CT scan a ordered by Dr. Leyva. Pt became tearful, explaining she is afraid of the machine. RN explained the difference between CT and MRI, but pt was still tearful refusing scan. Informed Dr. Leyva, gris valero orders,
[2023-04-21] MEDS: Lorazepam 2 MG/ML WCH Syringe 1 MG IV (14:21)
--- NOTE | 2023-04-21 15:12 | NURSING ---
DR AGUILERA FOR DR TA
--- NOTE | 2023-04-21 15:31 | NURSING ---
PCU TERELETSKY DYSPNEA, CHF, NSTEMI
[2023-04-21] MEDS: Furosemide 40 MG/4 ML Vial IV (15:40)
[2023-04-21] MEDS: Aspirin 81 MG TAB.CHEW 162 MG PO (15:40)
[2023-04-21] MEDS: Heparin Injection (Vial) 5,000 UNIT/ML VIAL 9500 UNIT IV (15:50)
[2023-04-21] MEDS: HEPARIN/D5w 25,000 UNITS 25,000 UNITS/250 ML IV.SOLN. 16 UNITS CONT INF (15:51)
[2023-04-21 15:55] LABS: Prothrombin Time (Protime)PT. 13.5 SECONDS (11.7-14.9)
[2023-04-21 15:56] LABS: Partial Thromboplast Time 29.8 Seconds (24.1-36.2)
--- NOTE | 2023-04-21 16:28 | ECHOD_ITS ---
Reason For Study: S/P [place] Procedure This was a 2D Doppler, Color Flow transthoracic echocardiogram. The study was technically difficult. Exam performed portable in patient room. Left Ventricle Normal LV size. The estimated ejection fraction is 65 %. No evidence for diastolic dysfunction. No regional wall motion abnormalities noted. Right Ventricle Normal RV size. Normal systolic function. Atria Normal left atrium. Normal right atrium. No doppler evidence for ASD. Mitral Valve There is moderate mitral annular calcification. There is no mitral valve stenosis. Trivial mitral valve insufficiency. Tricuspid Valve There is no tricuspid stenosis. Mild tricuspid valve insufficiency. Pulmonary artery systolic pressure is 45-50 mmHg. Aortic Valve Trisinus/trileaflet aortic valve. Mild diffuse aortic valve thickening. Mild aortic stenosis. No aortic valve insufficiency. Pulmonic Valve There is no pulmonic valvular stenosis. No pulmonic valve insufficiency. Great Vessels Normal aortic root. Pericardium/Pleural No pericardial effusion. MMode/2D Measurements & Calculations LVIDd: 4.7 cm IVSd: 1.0 cm LVOT diam: 2.0 cm LVIDs: 2.0 cm LVPWd: 0.97 cm LVOT area: 3.1 cm2 RVDd: 4.0 cm FS: 58.0 % Ao root diam: 3.7 cm LAV(MOD-bp): 47.3 ml LVAd ap4: 25.5 cm2 LAV(MOD-bp) Indexed: 21.0 ml/m2 LVLd ap4: 7.8 cm LAV(MOD-sp2): 55.1 ml EDV(MOD-sp4): 67.6 ml LAV(MOD-sp4): 36.8 ml EDV(sp4-el): 70.4 ml LVAs ap4: 10.7 cm2 LVLs ap4: 6.2 cm ESV(MOD-sp4): 16.7 ml ESV(sp4-el): 15.5 ml EF(MOD-sp4): 75.3 % EF(sp4-el): 77.9 % LVAd ap2: 27.2 cm2 SV(MOD-sp4): 50.9 ml SV(MOD-sp2): 62.3 ml LVLd ap2: 7.2 cm EDV(MOD-sp2): 86.4 ml EDV(sp2-el): 87.2 ml LVAs ap2: 12.8 cm2 LVLs ap2: 5.8 cm ESV(MOD-sp2): 24.0 ml ESV(sp2-el): 24.0 ml EF(MOD-sp2): 72.2 % SV(sp4-el): 54.8 ml LA dimension(2D): 4.7 cm LA A4 area: 16.9 cm2 RA A4 area: 19.5 cm2 TAPSE: 2.9 cm Time Measurements MV dec time: 0.20 sec Doppler Measurements & Calculations MV E max azar: 116.6 cm/sec Lat Peak E' Azar: 11.2 cm/sec Med Peak E' Azar: 10.0 cm/sec MV A max azar: 133.4 cm/sec E/E' lat: 10.4 E/E' med: 11.6 MV E/A: 0.87 Ao V2 max: 267.3 cm/sec LV V1 max: 139.7 cm/sec MV dec slope: 595.6 cm/sec2 Ao max P.6 mmHg LV V1 max P.8 mmHg Ao V2 mean: 188.9 cm/sec LV V1 mean P.2 mmHg Ao mean P.0 mmHg LV V1 mean: 97.1 cm/sec Ao V2 VTI: 58.7 cm LV V1 VTI: 28.8 cm AV (velocity ratio): 0.49 TAMIA(I,D): 1.5 cm2 TAMIA(V,D): 1.6 cm2 SV(LVOT): 88.7 ml PA V2 max: 106.8 cm/sec TR max azar: 331.1 cm/sec PA max PG (full): 1.3 mmHg TR max P.9 mmHg ECHO/Echo Complete Interpretation Summary The estimated ejection fraction is 65 %. No evidence for diastolic dysfunction. Trivial mitral valve insufficiency. Mild tricuspid valve insufficiency. Mild aortic stenosis. Ordering Physician: Tonio Bright Referring Physician: Greyson Isabel Performed By: Harleen Ramirez RDCS
--- NOTE | 2023-04-21 16:50 | PCM.HP.STD ---
HPI - General General Date of Admission: 04/21/23 Date of Service: 04/21/23 Chief Complaint: Shortness of breath HPI Narrative MAYNOR COX, is a 73 F who presents to the emergency room at [facility] after she was told by a tele physician during a visit today that she should go to the ER for evaluation of lower extremity edema and shortness of breath. Patient states that she has been short of breath over the last several days, she is vague on how long she has had lower extremity edema. Patient states she has a CPAP machine at home for obstructive sleep apnea, she states that her pulse ox has been low at times and she has been trying to adjust her CPAP upwards. Patient has not seen her family physician in approximately a year according to her. Patient denies any chest pain. Workup in the emergency room included labs which showed a slightly elevated troponin at 73, CBC was unremarkable, chemistry profile was unremarkable, beta natruretic peptide was elevated at 244. Patient's EKG showed a normal sinus rhythm without evidence of ischemia, patient's blood pressure was elevated at 213/99. Patient's pulse ox was above 90% on room air. Patient initially did not want to be admitted to the hospital but then relented and agreed to hospitalization. Patient will be admitted to PCU, an echocardiogram will be obtained, enzymes will be cycled, she will be placed on IV Lasix and additional medications for her blood pressure. Patient had a lipid profile last year which was highly abnormal, I will repeat the lipid profile in the morning. [facility] Medical History Hypersomnia Hypertension Home Medications ascorbate calcium (vitamin C) 500 mg tablet 500 mg PO DAILY 04/21/23 [History Last Taken Unknown] cholecalciferol (vitamin D3) 50 mcg (2,000 unit) tablet 2,000 unit PO DAILY 04/21/23 [History Last Taken Unknown] coenzyme Q10 10 mg capsule (Co Q-10) 10 mg PO DAILY 04/21/23 [History Last Taken Unknown] lisinopril 20 mg tablet 20 mg PO DAILY 04/21/23 [History Last Taken 04/20/23] magnesium 250 mg tablet 500 mg PO BID 04/21/23 [History Last Taken Unknown] multivitamin (Daily Multi-Vitamin tablet) 1 tab PO DAILY 04/21/23 [History Last Taken Unknown] Allergy/AdvReac Type Severity Reaction Status Date / Time No Known Allergies Allergy Verified 04/21/23 13:02 Social History Smoking Status: Never smoker ROS Constitutional Constitutional: Denies anorexia, change in weight, chills, fatigue, fever(s), malaise, night sweats or weakness Eyes Eyes: Denies blurry vision, change in vision, discharge from eye(s) or eye pain Cardiovascular Cardiovascular: Reports edema; Denies chest pain, claudication or palpitations Respiratory/Chest Respiratory/Chest: Reports dyspnea and shortness of breath with exertion; Denies cough, excessive phlegm production, hemoptysis, shortness of breath at rest or wheezing Gastrointestinal Gastrointestinal: Denies abdominal pain, constipation, diarrhea, hematemesis, hematochezia, melena, nausea or vomiting Genitourinary Genitourinary: Denies dysuria, hematuria, urinary frequency, urinary hesitancy, urinary incontinence or urinary urgency Musculoskeletal Musculoskeletal: Denies back pain, joint pain, joint stiffness, joint swelling, myalgias or neck pain Neurologic Neurologic: Denies abnormal gait, abnormal speech, dizziness, focal weakness, headache(s), loss of vision, numbness, other visual disturbances, paresthesias, syncope or tingling Psychiatric Psychiatric: Denies anxiety, cognitive impairment, depression, irritability, mood swings or suicidal ideation Endocrine Endocrinology: Denies change in body appearance, cold intolerance, excessive sweating, heat intolerance, polydipsia or polyuria Hematologic/Lymphatic Hematologic/Lymphatic: Denies none, anemia, easy bleeding, easy bruising or lymphadenopathy Allergic/Immunologic Allergic/Immunologic: Denies rhinitis, urticaria, eczemia or asthma Vital Signs Vital Signs Vital Signs: 04/21/23 13:02 04/21/23 13:24 04/21/23 13:25 Temperature 97.7 F L Temperature Source Temporal Pulse Rate 107 H Respiratory Rate 22 H Respiratory Effort Short of Breath Short of Breath Respiratory Pattern Tachypnea Tachypnea Blood Pressure 213/99 H Blood Pressure Mean 137 Pulse Ox 95 Oxygen Delivery Method Room Air Room Air 04/21/23 14:01 04/21/23 15:21 Temperature 97.8 F Temperature Source Pulse Rate 81 78 Respiratory Rate 21 H 17 Respiratory Effort Respiratory Pattern Blood Pressure 189/79 H 196/78 H Blood Pressure Mean 115 117 Pulse Ox 93 95 Oxygen Delivery Method Room Air Weight Weight: 121.291 kg Body Mass Index (BMI) 43.1 Physical Exam Const alert, oriented x3 and no apparent distress Constitutional Narrative: Patient is morbidly obese General Appearance: cooperative, well kempt and well developed Orientation / Consciousness: awake, oriented to person, oriented to place and oriented to time HEENT normocephalic, head/scalp atraumatic, hearing grossly normal bilaterally and moist oral mucous membranes Eyes PERRL, EOMs intact bilaterally and conjunctivae normal Neck supple, no JVD, thyroid normal and no carotid bruits General: trachea midline Resp normal respiratory effort, no retractions and no use of accessory muscles Resp Narrative: Inspiratory rales are noted at the left lung base Auscultation: Negative for rales, rhonchi or wheezes Cardio regular rate, regular rhythm, S1 normal heart sound, S2 normal heart sound, no murmurs, no rub and no gallops GI normal to inspection, nondistended, normoactive bowel sounds, soft to palpation, non-tender and non-distended Extremity Extremity Narrative: Generalized lower leg edema is noted bilaterally, this does not appear to be pitting in nature Skin no rashes or lesions noted General Skin Exam: no breakdown Neuro oriented x3, CN's II-XII intact bilaterally, moves all extremities, no focal motor deficits and no sensory deficits noted Sensorium / Orientation: awake, alert, oriented to person, oriented to place and oriented to time Speech: speech normal Psych affect normal Results Lab / Micro Data 04/21/23 13:20 04/21/23 13:20 Labs: Laboratory Results - last 24 hr 04/21/23 13:20: WBC 7.1, RBC 3.86 L, Hgb 12.0, Hct 36.2 L, MCV 93.8, MCH 31.1, MCHC 33.1, RDW Std Deviation 47.9 H, RDW Coeff of Daija 14.1, Plt Count 214, MPV 10.0, Immature Gran % (Auto) 0.700, Neut % (Auto) 66.1, Lymph % (Auto) 21.7, [place] % (Auto) 10.1 H, Eos % (Auto) 1.0, Baso % (Auto) 0.4, Absolute Neuts (auto) 4.7, Absolute Lymphs (auto) 1.54, Nucleated RBC % 0, PT 13.5, INR 1.0, APTT 29.8, D-Dimer Quant (PE/DVT) 1.90 H*, Sodium 142, Potassium 4.0, Chloride 112 H, Carbon Dioxide 25.0, Anion Gap 5, BUN 15, Creatinine 0.80, Estim Creat Clear Calc 81.91, Est GFR (MDRD) Af Amer 91, Est GFR (MDRD) Non-Af 75, BUN/Creatinine Ratio 18.8, Glucose 96, Calcium 9.6, Troponin I High Sens 73 H, B-Natriuretic Peptide 244.7 H Imaging Radiology Impression Chest X-Ray 04/21/23 13:45 IMPRESSION: Normal x-ray examination of the chest. Electronically Signed: Huber Gilbert MD at 14:07 EST , Chest CTA 04/21/23 14:02 IMPRESSION: No evidence of pulmonary embolism. Increased markings in the superior segment of the right lower lobe as well as in the posterior aspect of the left upper lobe suggestive of either atelectasis and/or early infiltrate. Electronically Signed: Huber Gilbert MD at 15:04 EST , Assessment & Plan Assessment/Plan (1) New onset of congestive heart failure: PLAN: Plan 1. Congestive heart failure-exact etiology unclear at this point, patient will be admitted to PCU, she will be placed on IV Lasix, echocardiogram will be obtained tomorrow, labs will be monitored #2 hypertensive emergency-patient's blood pressure is elevated and she has evidence of CHF, this denotes a hypertensive emergency, patient will be placed on an increased dose of lisinopril, again she will be placed on IV Lasix and I will add Coreg 12.5 mg twice daily starting tonight. Blood pressures will be monitored. #3 obstructive sleep apnea-I will raise the patient's CPAP setting up to 13 cm, she uses 11 cm at home #4 noncompliance with medical regimen-patient states she has not seen her family physician in the year, complicates care, medical course, recovery, and prognosis #5 hyperlipidemia-patient is not currently on any medication for cholesterol, lipid profile will be repeated tomorrow #6 elevated troponin-possibly secondary to type II NE, patient has no complaints of any chest pain however, cardiac enzymes will be cycled. #7 morbid obesity-complicates care, medical course, recovery, and prognosis Total clinical time spent by myself addressing the patient's medical issues, reviewing all of her data, and collaborating with patient's care team: 75 minutes Charges/Coding Visit Charges Inpatient E&M: 33868 Init Hosp L3
[2023-04-21] MEDS: Potassium Chloride Oral Tablet 20 MEQ PO (17:31)
[2023-04-21] MEDS: Carvedilol 12.5 MG Tablet PO (17:32)
[2023-04-21] MEDS: Lisinopril 20 MG Tablet PO (17:32)
[2023-04-21 18:33] LABS: Troponin-I HS 367 pg/mL (3.0-54.0)
[2023-04-21] MEDS: Furosemide 20 MG/2 ML VIAL IV (20:23)
[2023-04-21] MEDS: Heparin Injection (Vial) 5,000 UNIT/ML VIAL 5000 UNIT SC (20:23)
[2023-04-21 20:52] LABS: Troponin-I HS 285 pg/mL (3.0-54.0)
--- NOTE | 2023-04-21 20:57 | CPS ---
Patient offered CPAP for tonight. patient politely declined and said she doesn't think she needs it tonight. Advised to call respiratory if she changes her mind.
--- OUTSIDE RECORDS SUMMARY | 2023-04-21 23:54 | XMS RPT_ITS | CCD ---
Author Name Unknown Address [address] [place] [address] Organization [facility] Care Team Providers Care Health Care Attorney Name Role Phone Larry Singer Chi Primary Care Provider Medications Completed/Discontinued Medications Medication Drug Class(es) Dates Sig (Normalized) Sig (Original) acetaminophen 325 mg / oxyCODONE hydrochloride 5 mg oral tablet (1 source) Opioid Agonist Start: 09-29-2010 take 1 tablet by mouth every six hours as needed oxyCODONE-acetami nophen 5-325 mg ORAL tablet Take 1 tablet by mouth every 6 hours as needed. FOR PAIN. 10 tablet 0 09/29/2010 Active Problems Problem Classification Problem Date Documented Da te Episodic/Chronic Spondylosis; intervertebral disc disorders; other back problems (1 source) Thoracic and lumbosacral neuritis; Translations: [Thoracic or lumbosacral neuritis or radiculitis, unspecified] Onset: 10-11-2010 10-11-2010 Episodic Results Test Name Value Interpretation Reference Range Facil ity Encounters Encounter Date Encounter Type Care Provider Facility Start: 08-18-2022 Telephone encounter Mars Pearl MD Work Phone: Neurology Plan of Treatment Date Care Activity Detail Author Start: 10-24-2022 Influenza vaccination INFLUENZA (#1) [facility] Start: 02-23-2022 ADVANCE DIRECTIVE DISCUSSION ADVANCE DIRECTIVE DISCUSSION [facility] Start: 02-23-2022 DEPRESSION ASSESSMENT DEPRESSION ASS ESSMENT [facility] Start: 2014 BONE DENSITY BONE DENSITY [facility] Start: 2014 PNEUMOCOCCAL: 65+ (1 - PCV) PNEUMOCOCCAL: 65+ (1 - PCV) [facility] Start: 1999 SHINGRIX VACCINE (1 of 2) SHINGRIX V ACCINE (1 of 2) [facility] Start: 1994 COLOGUARD (FIT-DNA) COLOGUARD (FIT-D NA) [facility] Start: 1994 Colonoscopy COLONOSCOPY [facility] Start: 1994 COLORECTAL CANCER SCREENING COLORECTAL CANCER SCREENING [facility] Start: [address] COLONOGRAPHY [facility] Start: 1994 DIABETES SCREEN DIABETES SCREEN [facility] Start: 1994 FECAL OCCULT BLOOD FECAL OCCULT BLOO D [facility] Start: 1994 LIPID SCREEN LIPID SCREEN [facility] Start: 1994 SIGMOIDOSCOPY SIGMOIDOSCOPY [facility] Start: 1989 Mammography MAMMOGRAM [facility] Start: 02-28-1968 Urine microalbumin profile DTAP,TDAP ,TD (1 - Tdap) [facility] Start: 1967 HEPATITIS C SCREENING HEPATITIS C SC REENING [facility] Start: 1949 COVID-19 VACCINE (#1) COVID-19 VACCI NE (#1) [facility] Payers Date Payer Category Payer Private Health Insurance [employer] A ETNA MEDICARE SUPPLEMENT [id number] 2022-Present [phone] [address] [address] [place] [address] Indemnity [id number] 2014 Medicare MEDICARE MEDICAR E A AND B [id number] 2014-Present [phone] [address] [address] [place] [address] Medicare [id number] Social History Date Type Detail Facility Start: 06-24-2020 Tobacco smoking stat us WAIS Never smoked tobacco [facility] Work Phone: Start: 06-24-2020 Tobacco use and exposure Smokeless tobacco non-user [facility] Work Phone: Start: 06-24-2020 Alcohol intake Not Asked [facility] Start: 1950 Sex Assigned At Not on file C [facility] Note 08-25-2022 Telephone Encounter - Yarelis Vázquez LPN - 08/25/2022 4:28 PM EDTTelephone Encounter - Yarelis Vázquez LPN - 08/25/2022 9:31 AM EDTTelephone Encounter - Imani Salter - 08/20/2022 4:44 PM EDT Note Date & Type Note Facility 08-25-2022 Miscellaneous Notes Formattin g of this note might be different from the original. Pt cancelled appointment with . Yarelis Vázquez LPN TC to pt with no answer, left VM to return call. Please confirm with pt if she is keeping her neuro appointment on the or if she wants to cancel. (If she wants to cancel, please send it back and leave appointment on the schedule, we will cancel for her.) Yarelis Vázquez LPN Sleep study results received from [facility] and scanned into chart. Yarelis Vázquez LPN Fax for medical records faxed to Dr. Arturo Teixeira at [phone]. Yarelis Vázquez LPN The patient called. The patient saw Dr. Galvan in [facility] Mar or April 2022. CPAP Machine DME: [facility] [place] Last sleep study was done at [facility] 2010. The patient will call back to let us know if she wants to keep or cancel the appointment. TC to pt on both numbers. No answer on either. Left VM to return call. Yarelis Vázquez LPN TC to pt with no answer. Left Vm to return call. See message below. Yarelis Vázquez LPN Patient has a NEW appointment for [place] on 09/01/22 with [facility]. There is no information in the patient chart or a referral. Has patient been seen by a sleep provider before? Has a HSAT or PSG been completed and if so where? Does patient have a CPAP and if so, who is the DME? TC to patient with no answer. Unable to leave VM as line continues to ring. Please try again later. DANIEL Alarcon documented in this encounter [facility] Summary Purpose Family History No Family History Records Found Advance Directives No Advanced Directives Records Found Additional Source Comments Source Comments (unrecognize d section and content) In the event this informatio n is protected by the Federal Confidentiality of Alcohol and Drug Abuse Patient Records regulations: The Federal rules restrict any use of the information to criminally investigate or prosecute any alcohol or drug abuse patient.[facility] Reason for Visit (unrecogniz ed section and content) Care Teams (unrecognized sec tion and content) INFORMATION SOURCE (unrecogn ized section and content) FOR RECORDS PERTAINING TO PATIENTS WHO ARE OR HAVE BEEN ENROLLED IN A CHEMICAL DEPENDENCY/SUBSTANCEABUSE PROGRAM, SOME INFORMATION MAY BE OMITTED. This clinical summary was aggregated from multiple sources. Caution should be exercised in using it in the provision of clinical care. This summary normalizes information from multiple sources, and as a consequence, information in this document may materially change the coding, format and clinical context of patient data. In addition, data may be omitted in some cases. CLINICAL DECISIONS SHOULD BE BASED ON THE PRIMARY CLINICAL RECORDS. [facility] [employer] [facility]. provides no warranty or guarantee of the accuracy or completeness of information in this document.
--- OUTSIDE RECORDS SUMMARY | 2023-04-22 00:27 | XMS RPT_ITS | CCD ---
Author Name Unknown Address [address] [place] [address] Organization [facility] Care Team Providers Care Waitress Name Role Phone Larry Singer Chi Primary [...] Author Start: 10-24-2022 Influenza vaccination INFLUENZA (#1) [facility] Start: 02-23-2022 ADVANCE DIRECTIVE DISCUSSION ADVANCE DIRECTIVE DISCUSSION [facility] Start: 02-23-2022 DEPRESSION ASSESSMENT DEPRESSION ASS ESSMENT [facility] Start: 2014 BONE DENSITY BONE DENSITY [facility] Start: 2014 PNEUMOCOCCAL: 65+ (1 - PCV) PNEUMOCOCCAL: 65+ (1 - PCV) [facility] Start: 1999 SHINGRIX VACCINE (1 of 2) SHINGRIX V ACCINE (1 of 2) [facility] Start: 1994 COLOGUARD (FIT-DNA) COLOGUARD (FIT-D NA) [facility] Start: 1994 Colonoscopy COLONOSCOPY [facility] Start: 1994 COLORECTAL CANCER SCREENING COLORECTAL CANCER SCREENING [facility] Start: [address] COLONOGRAPHY [facility] Start: 1994 DIABETES SCREEN DIABETES SCREEN [facility] Start: 1994 FECAL OCCULT BLOOD FECAL OCCULT BLOO D [facility] Start: 1994 LIPID SCREEN LIPID SCREEN [facility] Start: 1994 SIGMOIDOSCOPY SIGMOIDOSCOPY [facility] Start: 1989 Mammography MAMMOGRAM [facility] Start: 02-28-1968 Urine microalbumin profile DTAP,TDAP ,TD (1 - Tdap) [facility] Start: 1967 HEPATITIS C SCREENING HEPATITIS C SC REENING [facility] Start: 1949 COVID-19 VACCINE (#1) COVID-19 VACCI NE (#1) [facility] Payers Date Payer Category Payer Private Health Insurance [employer] A ETNA MEDICARE SUPPLEMENT [id number] 2022-Present [phone] [address] [address] [place] [address] Indemnity [id number] 2014 Medicare MEDICARE MEDICAR E A AND B [id number] 2014-Present [phone] [address] [address] [place] [address] Medicare [id number] Social History Date Type Detail Facility Start: 06-24-2020 Tobacco smoking stat us [facility] Never smoked tobacco [facility] Work Phone: Start: 06-24-2020 Tobacco use and exposure Smokeless tobacco non-user [facility] Work Phone: Start: 06-24-2020 Alcohol intake Not Asked [facility] Start: 1950 Sex Assigned At Not on file C [facility] Note 08-25-2022 Telephone Encounter - Yarelis Vázquez LPN - 08/25/2022 4:28 PM EDTTelephone Encounter - Yarelis Vázquez LPN - 08/25/2022 9:31 AM EDTTelephone Encounter - Imani Satler - 08/20/2022 4:44 PM EDT Note Date [...] Vázquez LPN Sleep study results received from [facility] and scanned into chart. Yarelis Vázquez LPN Fax for medical records faxed to Dr. Arturo Teixeira at [phone]. Yarelis Vázquez LPN The patient called. The patient saw Dr. Galvan in [facility] Mar or April 2022. CPAP Machine DME: Odilia Laclede Last sleep study was done at [facility] 2010. The patient will call back to [...] later. DANIEL Alarcon documented in this encounter [facility] Summary Purpose Family History No Family History [...] or prosecute any alcohol or drug abuse patient.[facility] Reason for Visit (unrecogniz ed section and [...] BE BASED ON THE PRIMARY CLINICAL RECORDS. [facility] [address] [facility]. provides no warranty or guarantee of the accuracy or completeness of information in this document.
[2023-04-22 02:45] VITALS: BP 141/70; PULSE 69; RESP 18; TEMP 36.8; O2SAT 94
[2023-04-22 04:44] VITALS: BMI 42.7
[2023-04-22] MEDS: Furosemide 20 MG/2 ML VIAL IV ×2 (05:29→14:48)
[2023-04-22] MEDS: 0.9% Saline Lock 10 ML Syringe IV ×3 (05:29→14:48)
[2023-04-22 05:31] VITALS: BMI 41.5
--- NOTE | 2023-04-22 05:55 | EKG12_ITS ---
Test Reason : sob Blood Pressure : / mmHG Vent. Rate : 063 BPM Atrial Rate : 063 BPM P-R Int : 150 ms QRS Dur : 088 ms QT Int : 444 ms P-R-T Axes : 037 -28 -14 degrees QTc Int : 454 ms Normal sinus rhythm Minimal voltage criteria for LVH, may be normal variant ( R in aVL ) Borderline ECG When compared with ECG of 21-APR-2023 13:44, MANUAL COMPARISON REQUIRED, DATA IS UNCONFIRMED Confirmed by NAYELY MARCANO, SUGEY ([id number]), editorial director OLGA SIMS ([id number]) on 04/27/2023 6:47:06 AM Referred By: Confirmed By:VINNY ADLER MD
[2023-04-22 07:37] LABS: Anion Gap 5 (5-15); BUN 14 mg/dL (7-18); BUN/Creat Ratio 16.1 RATIO (10-20); Chloride 107 mmol/L (98-107); Cholesterol 253 mg/dL (200); Creatinine, Serum 0.87 mg/dL (0.55-1.02); EST Glomerular Filtration Rate 68 mL/min (>60); Est Glom Filt Rate - Afr Amer 82 mL/min (>60); Estimated Creatinine Clearance 73.67 ml/min; Glucose 85 mg/dL (74-106); High Density Lipoprotein 66 mg/dL; Potassium 3.6 mmol/L (3.5-5.1); Sodium Level 140 mmol/L (136-145); Triglycerides 122 mg/dL; Very Low Density Lipoprotein 24 mg/dL (5-40)
--- NOTE | 2023-04-22 07:48 | PN.HOSP_ITS ---
Reason for Visit Reason for Visit: Diagnoses Heart failure, unspecified (04/21/23) Subjective Subjective Feels well, anxious to go home. Her 13-year old dog 04/05. Has noted LE edema about 1 week ago. Objective Data Objective Data Vital Signs: Vital Signs Temp Pulse Resp BP Pulse Ox O2 Del Method 36.8 C 69 18 141/70 H 94 Room Air 04/22/23 02:45 04/22/23 02:45 04/22/23 02:45 04/22/23 02:45 04/22/23 02:45 04/22/23 02:45 Oxygen Delivery Method Room Air Weight: 116.7 kg Body Mass Index (BMI) 41.5 Intake & Output: Intake and Output for Last 24 Hours 04/20/23 04/21/23 04/22/23 23:59 23:59 23:59 Intake Total 715.73 / 715.73 200 / 200 Balance 715.73 / 715.73 200 / 200 Lab / Micro Data 04/21/23 13:20 04/22/23 06:35 Labs: Laboratory Results - last 24 hr 04/21/23 13:20: WBC 7.1, RBC 3.86 L, Hgb 12.0, Hct 36.2 L, MCV 93.8, MCH 31.1, MCHC 33.1, RDW Std Deviation 47.9 H, RDW Coeff of Daija 14.1, Plt Count 214, MPV 10.0, Immature Gran % (Auto) 0.700, Neut % (Auto) 66.1, Lymph % (Auto) 21.7, [place] % (Auto) 10.1 H, Eos % (Auto) 1.0, Baso % (Auto) 0.4, Absolute Neuts (auto) 4.7, Absolute Lymphs (auto) 1.54, Nucleated RBC % 0, PT 13.5, INR 1.0, APTT 29.8, D-Dimer Quant (PE/DVT) 1.90 H*, Sodium 142, Potassium 4.0, Chloride 112 H, Carbon Dioxide 25.0, Anion Gap 5, BUN 15, Creatinine 0.80, Estim Creat Clear Calc 81.91, Est GFR (MDRD) Af Amer 91, Est GFR (MDRD) Non-Af 75, BUN/Creatinine Ratio 18.8, Glucose 96, Calcium 9.6, Troponin I High Sens 73 H, B-Natriuretic Peptide 244.7 H 04/21/23 17:37: Troponin I High Sens 367 H* 04/21/23 19:57: Troponin I High Sens 285 H* 04/22/23 06:35: Sodium 140, Potassium 3.6, Chloride 107, Carbon Dioxide 28.0, Anion Gap 5, BUN 14, Creatinine 0.87, Estim Creat Clear Calc 73.67, Est GFR (MDRD) Af Amer 82, Est GFR (MDRD) Non-Af 68, BUN/Creatinine Ratio 16.1, Glucose 85, Calcium 9.0, Triglycerides 122, Cholesterol 253 H, LDL Cholesterol 163 H, VLDL Cholesterol 24, HDL Cholesterol 66 Radiography Diagnostic Testing: Radiology Impression Chest X-Ray 04/21/23 13:45 IMPRESSION: Normal x-ray examination of the chest. Electronically Signed: Huber Gilbert MD at 14:07 EST , Chest CTA 04/21/23 14:02 IMPRESSION: No evidence of pulmonary embolism. Increased markings in the superior segment of the right lower lobe as well as in the posterior aspect of the left upper lobe suggestive of either atelectasis and/or early infiltrate. Electronically Signed: Huber Gilbert MD at 15:04 EST , Physical Exam Const alert and no apparent distress HEENT head/scalp atraumatic and moist oral mucous membranes Resp normal respiratory effort, no retractions, no use of accessory muscles and clear to auscultation bilaterally Cardio regular rate, regular rhythm, S1 normal heart sound and S2 normal heart sound GI normal to inspection, nondistended, normoactive bowel sounds, soft to palpation, non-tender and non-distended Extremity General Extremity: edema bilateral lower extremity Details: moderate Assessment & Plan Assessment/Plan (1) New onset of congestive heart failure: PLAN: Plan acute HFpEF * unclear type * on IV furosemide * echo shows an EF 65%. NSTEMI * unclear type * troponins peaked at 367. * start heparin gtt. * consult cardiology. hypertensive emergency * POA. Since resolved. Chronic conditions: * TRINIDAD: continue CPAP * hyperlipidemia-patient is not currently on any medication for cholesterol, lipid profile will be repeated tomorrow * morbid obesity-complicates care, medical course, recovery, and prognosis VTE prophylaxis: not indicated. pt already on anticoagulation. Pt was apprehensive about staying initially, but after discussion about reasons (CHF, NSTEMI) she understood and was agreeable. Charges/Coding Visit Charges Inpatient E&M: 57680 Subs Hosp L2
[2023-04-22 08:40] VITALS: BP 162/72; PULSE 73; RESP 18; TEMP 36.9; O2SAT 94
[2023-04-22] MEDS: Carvedilol 12.5 MG Tablet PO ×2 (08:41→16:54)
[2023-04-22] MEDS: Lisinopril 20 MG Tablet PO (08:41)
[2023-04-22] MEDS: Aspirin E.C. 81 MG Tablet PO (08:42)
[2023-04-22] MEDS: Potassium Chloride Oral Tablet 20 MEQ PO ×2 (08:42→16:54)
[2023-04-22 09:41] LABS: Partial Thromboplast Time 27.6 Seconds (24.1-36.2)
[2023-04-22] MEDS: Heparin Injection (Vial) 5,000 UNIT/ML VIAL 4000 UNIT IV (10:02)
[2023-04-22] MEDS: HEPARIN/D5w 25,000 UNITS 25,000 UNITS/250 ML IV.SOLN. 10 UNITS CONT INF (10:05)
--- NOTE | 2023-04-22 11:10 | CASEMGMT ---
RN?CM?AUDIT LEAD?CM?to room to meet with patient for initial transition planning/care coordination?assessment.?RN?CM?introduced self and role at [facility].? Pt voices understanding and consents to?assessment?at this time.? Pt resting in bed in no distress at this time.? Pt is A/O at this time and answers all questions appropriately.?? Care providers, pharmacy, and demographics verified/updated at this time. PCP: Dr Isabel. Specialists: [facility]/virtual sleep specialist--Pt does not remember her name. Just had a virtual visit w/her yesterday. Preferred Pharmacy: [facility] Retail @ discharge. Insurance: MCR, Aetna Prescription Benefit:?yes Living Will/HPOA:? Pt does not currently have LW/HCPOA and would like to complete. SW, Aparna, made aware. Pt made aware if SW unable to complete AD while she is @ [facility], that this can be completed as an OP w/[facility] SW. LNOK: One daughter, Rosmery Ritchie. Friend, Diana, is also listed on her contact list. Living Arrangements: Lives alone in ranch-style home w/2 steps to enter. Independent w/ADL's and IADL's. Transportation:?Pt states drives self and states no transportation concerns at this time.? DME: ?States has the following DME:?functioning glucometer w/supplies, CPAP w/continuous pulse ox ?Pt states no need for further DME at this time.? HHC/SNF: No hx of either. No needs identified. Pt Link: Discussed Pt Link for new Dx CHF and pt is interested in this. Referral placed. Pt wishes to return home and states has no concerns with going home at time of discharge.? ?CM?to follow for any further discharge planning/needs.? Pt voices no further concerns/needs at this time.? Advised pt to ask for?CM?if any further questions/concerns/needs arise.? Voices understanding. PLAN:??Home w/Pt Link Scar PRASADN?RN?CM
--- NOTE | 2023-04-22 13:43 | PCM.CONS.C ---
Assessment & Plan Assessment/Plan (1) Exertional dyspnea: PLAN: Echo revealed preserved EF. Patient complained of generalized swelling that is worse in the lower extremities. Reasonable to check urine protein creatinine ratio and also serum albumin. Agree with current medications. Discussed stress testing versus coronary angiography with the patient. I think it will be reasonable to proceed with stress testing due to the borderline elevation in high-sensitivity troponin in this patient presenting with dyspnea but no chest pain. Patient has company at home tomorrow and was wondering about getting discharged today. She could get the stress test as an outpatient. If will be reasonable to discharge patient home on Lasix 40 mg p.o. daily. Okay to discharge home from a cardiac standpoint. (2) Elevated troponin: PLAN: Borderline troponin elevation. Management as described above. HPI Consult Data Date of Consult: 04/22/23 HPI Narrative Reason for Consultation: Elevated troponin HPI Narrative: MAYNOR COX, is a 73 F who presents with shortness of breath and generalized edema worse in the lower extremities. Patient's troponin peaked at around 360 and has started coming down. She denies any chest pain. She was given IV Lasix after coming to the hospital and has noticed significant improvement. Review of systems: All else is negative except that in the HPI [facility] Medical History Congestive heart failure (CHF) CPAP (continuous positive airway pressure) dependence Hypersomnia Hypertension Myocardial infarct Non-smoker Home Medications ascorbate calcium (vitamin C) 500 mg tablet 500 mg PO DAILY 04/21/23 [History Last Taken Unknown] cholecalciferol (vitamin D3) 50 mcg (2,000 unit) tablet 2,000 unit PO DAILY 04/21/23 [History Last Taken Unknown] coenzyme Q10 10 mg capsule (Co Q-10) 10 mg PO DAILY 04/21/23 [History Last Taken Unknown] lisinopril 20 mg tablet 20 mg PO DAILY 04/21/23 [History Last Taken 04/20/23] magnesium 250 mg tablet 500 mg PO BID 04/21/23 [History Last Taken Unknown] multivitamin (Daily Multi-Vitamin tablet) 1 tab PO DAILY 04/21/23 [History Last Taken Unknown] Allergy/AdvReac Type Severity Reaction Status Date / Time No Known Allergies Allergy Verified 04/21/23 13:02 Social History Smoking Status: Never smoker Physical Exam Const alert and oriented x3 HEENT normocephalic Eyes no scleral icterus Resp normal respiratory effort Cardio regular rate and regular rhythm Extremity Extremity Narrative: 1+ bilateral pitting edema Psych mental status grossly normal Risk Stratification Risk Stratification Applicable: No Charges/Coding Visit Charges Inpatient E&M: 04387 Init Hosp L2 Objective Data Vital Signs: Vital Signs Temp Pulse Resp BP Pulse Ox O2 Del Method 98.5 F 73 18 162/72 H 94 Room Air 04/22/23 08:40 04/22/23 08:40 04/22/23 08:40 04/22/23 08:40 04/22/23 08:40 04/22/23 08:40 Oxygen Delivery Method Room Air Weight: 257 lb 4.471 oz Body Mass Index (BMI) 41.5 Intake & Output: Intake and Output for Last 24 Hours 04/20/23 04/21/23 04/22/23 23:59 23:59 23:59 Intake Total 715.73 / 715.73 740 / 740 Balance 715.73 / 715.73 740 / 740 Lab / Micro Data 04/21/23 13:20 04/22/23 06:35 Labs: Laboratory Results - last 24 hr 04/21/23 13:20: PT 13.5, INR 1.0, APTT 29.8, D-Dimer Quant (PE/DVT) 1.90 H*, Sodium 142, Potassium 4.0, Chloride 112 H, Carbon Dioxide 25.0, Anion Gap 5, BUN 15, Creatinine 0.80, Estim Creat Clear Calc 81.91, Est GFR (MDRD) Af Amer 91, Est GFR (MDRD) Non-Af 75, BUN/Creatinine Ratio 18.8, Glucose 96, Calcium 9.6, Troponin I High Sens 73 H, B-Natriuretic Peptide 244.7 H 04/21/23 17:37: Troponin I High Sens 367 H* 04/21/23 19:57: Troponin I High Sens 285 H* 04/22/23 06:35: Sodium 140, Potassium 3.6, Chloride 107, Carbon Dioxide 28.0, Anion Gap 5, BUN 14, Creatinine 0.87, Estim Creat Clear Calc 73.67, Est GFR (MDRD) Af Amer 82, Est GFR (MDRD) Non-Af 68, BUN/Creatinine Ratio 16.1, Glucose 85, Calcium 9.0, Triglycerides 122, Cholesterol 253 H, LDL Cholesterol 163 H, VLDL Cholesterol 24, HDL Cholesterol 66 04/22/23 08:23: APTT 27.6 Cardiology Labs/Tests 04/21/23 13:20: PT 13.5, INR 1.0, APTT 29.8, D-Dimer Quant (PE/DVT) 1.90 H*, Sodium 142, Potassium 4.0, Chloride 112 H, Carbon Dioxide 25.0, Anion Gap 5, BUN 15, Creatinine 0.80, Est GFR (MDRD) Af Amer 91, Est GFR (MDRD) Non-Af 75, BUN/Creatinine Ratio 18.8, Glucose 96, Calcium 9.6, B-Natriuretic Peptide 244.7 H 04/22/23 06:35: Sodium 140, Potassium 3.6, Chloride 107, Carbon Dioxide 28.0, Anion Gap 5, BUN 14, Creatinine 0.87, Est GFR (MDRD) Af Amer 82, Est GFR (MDRD) Non-Af 68, BUN/Creatinine Ratio 16.1, Glucose 85, Calcium 9.0, Triglycerides 122, Cholesterol 253 H, LDL Cholesterol 163 H, VLDL Cholesterol 24, HDL Cholesterol 66 04/22/23 08:23: APTT 27.6 Rhythm: EKG: ECHO: Stress Test: Cardiac Cath: PCI: CT Surgery: Holter monitor: EPS: PPM: CXR: Chest CT Scan: Radiography Diagnostic Testing: Radiology Impression Chest X-Ray 04/21/23 13:45 IMPRESSION: Normal x-ray examination of the chest. Electronically Signed: Huber Gilbert MD at 14:07 EST , Chest CTA 04/21/23 14:02 IMPRESSION: No evidence of pulmonary embolism. Increased markings in the superior segment of the right lower lobe as well as in the posterior aspect of the left upper lobe suggestive of either atelectasis and/or early infiltrate. Electronically Signed: Huber Gilbert MD at 15:04 EST , Echocardiogram 04/21/23 16:28 Interpretation Summary The estimated ejection fraction is 65 %. No evidence for diastolic dysfunction. Trivial mitral valve insufficiency. Mild tricuspid valve insufficiency. Mild aortic stenosis. Ordering Physician: Tonio Bright Referring Physician: Greyson Isabel Performed By: Harleen Ramirez RDCS
--- NOTE | 2023-04-22 14:17 | PCM.DC.SUM ---
Providers Date of Admission: 04/21/23 Primary Care Physician: Dr. Greyson Isabel MD Consultations 04/22/23 07:57 Consult: Cardiology Routine Consulting Provider: Lonny Klein Reason for Consult: NSTEMI EMERGENT Consult: No MD Notified: Yes Date Notified: 04/22/23 Time Notified: 07:57 Method of Notification: Text Reason For Visit: DYSPNEA, CHF, NON STEMI Diagnosis Discharge Diagnosis (1) Exertional dyspnea: Status: Acute Code(s): R06.09 - Other forms of dyspnea (2) Elevated troponin: Status: Acute Code(s): R79.89 - Other specified abnormal findings of blood chemistry Plan acute HFpEF unclear type on IV furosemide echo shows an EF 65%. NSTEMI unclear type troponins peaked at 367. start heparin gtt. consult cardiology. hypertensive emergency POA. Since resolved. Chronic conditions: TRINIDAD: continue CPAP hyperlipidemia-patient is not currently on any medication for cholesterol, lipid profile will be repeated tomorrow morbid obesity-complicates care, medical course, recovery, and prognosis VTE prophylaxis: not indicated. pt already on anticoagulation. Pt was apprehensive about staying initially, but after discussion about reasons (CHF, NSTEMI) she understood and was agreeable. Medications at Discharge Home Medications ascorbate calcium (vitamin C) 500 mg tablet 500 mg PO DAILY 04/21/23 cholecalciferol (vitamin D3) 50 mcg (2,000 unit) tablet 2,000 unit PO DAILY 04/21/23 coenzyme Q10 10 mg capsule (Co Q-10) 10 mg PO DAILY 04/21/23 lisinopril 20 mg tablet 20 mg PO DAILY 04/21/23 magnesium 250 mg tablet 500 mg PO BID 04/21/23 multivitamin (Daily Multi-Vitamin tablet) 1 tab PO DAILY 04/21/23 aspirin 81 mg tablet,delayed release 81 mg PO BREAKFAST #0 tabs 04/22/23 carvedilol 12.5 mg tablet 12.5 mg PO BIDCM #60 tabs 04/22/23 furosemide 40 mg tablet 40 mg PO DAILY #30 tabs 04/22/23 potassium chloride 10 mEq capsule,extended release 10 meq PO DAILY #30 caps 04/22/23 Hospital Course Operations None Procedures 2-D Echocardiogram Summary of Care Provided Minutes Spent on Discharge: 35 Hospital Course: Patient presents with shortness of breath. Additionally had elevated troponins when she was here. Patient did not have any chest pain. Patient was diagnosed with CHF exacerbation. Chest x-ray was unremarkable patient did have a prominent lower extremity edema. Patient states that the edema is been ongoing for the past week. Patient did have 2D echocardiogram that showed an EF of 65%. She was seen by cardiology and did not feel the patient would warrant testing in the hospital and can follow-up with cardiology as outpatient for further stress testing. Did recommend following her kidney function. Discussed with the patient that sister kidney function more adequately with urine protein and so for that would require 24-hour sample. Patient to follow-up with her primary care doctor to see if that would be necessary or to follow-up with nephrology. Patient will be on furosemide, lisinopril and carvedilol. She will also continue with aspirin. Patient had non-ST elevation myocardial infarction, type II due to CHF exacerbation. Patient will continue with aspirin and follow-up with cardiology for stress testing as outpatient. Weight / BMI Weight Weight: 116.7 kg Body Mass Index (BMI) 41.5 ABG / Lab / Microbiology Data 04/21/23 13:20 04/22/23 06:35 Laboratory: Laboratory Results - last 24 hr 04/21/23 13:20: PT 13.5, INR 1.0, APTT 29.8 04/21/23 17:37: Troponin I High Sens 367 H* 04/21/23 19:57: Troponin I High Sens 285 H* 04/22/23 06:35: Sodium 140, Potassium 3.6, Chloride 107, Carbon Dioxide 28.0, Anion Gap 5, BUN 14, Creatinine 0.87, Estim Creat Clear Calc 73.67, Est GFR (MDRD) Af Amer 82, Est GFR (MDRD) Non-Af 68, BUN/Creatinine Ratio 16.1, Glucose 85, Calcium 9.0, Triglycerides 122, Cholesterol 253 H, LDL Cholesterol 163 H, VLDL Cholesterol 24, HDL Cholesterol 66 04/22/23 08:23: APTT 27.6 Radiography Diagnostic Testing: Radiology Impression Chest CTA 04/21/23 14:02 IMPRESSION: No evidence of pulmonary embolism. Increased markings in the superior segment of the right lower lobe as well as in the posterior aspect of the left upper lobe suggestive of either atelectasis and/or early infiltrate. Electronically Signed: Huber Gilbert MD at 15:04 EST , Echocardiogram 04/21/23 16:28 Interpretation Summary The estimated ejection fraction is 65 %. No evidence for diastolic dysfunction. Trivial mitral valve insufficiency. Mild tricuspid valve insufficiency. Mild aortic stenosis. Ordering Physician: Tonio Bright Referring Physician: Greyson Isabel Performed By: Harleen Ramirez RDCS D/C Instructions Discharge Diet: 8 Cup Fluid Restriction (1.5 liters fluid/day) and 2000 mg Sodium Diet Meaningful Use Info Meaningful Use Diagnoses (Choose all that apply): CHF CHF ANMOL/ARB ordered at discharge?: Yes Documented LVEF (%): 65 Discharge Plan Admission Admit Date/Time: 04/21/23 15:53 Primary Reason for Your Visit: CHF exacerbation. Attending Provider: Curtis Morales Primary Care Provider: Greyson Isabel Consulting Providers: Tonio Bright; Lonny Klein Instructions Additional Instructions / Restrictions: You presented with what is called congestive heart failure exacerbation. Heart function is good but you have too much fluid on board. So were helping that process along with utilizing furosemide (also known as Lasix). It is important to limit the fluid intake that you have. I do recommend 8 cups or 1.5 L fluid per day also limiting your salt intake to 2 g of sodium per day. Salt can lead to fluid retention which is why we recommend cutting back your sodium intake. He will also be on lisinopril as well as carvedilol. Please follow-up with cardiology as outpatient and you may need to have a stress test. Your kidney function is normal, however this will need to be followed up with your primary care doctor take with you being on the furosemide. If your swelling does not improve with time you may need to have further studies such as 24-hour urinary collection or possible referral to kidney doctor down the road but that seems less likely at this point in time. Additionally, you will be on potassium tablet. The potassium is because you are on furosemide which not only gets rid of fluid but also gets rid of potassium. Discharge Orders/Prescriptions Prescriptions: New carvedilol 12.5 mg Tablet 12.5 mg PO BIDCM Qty: 60 0RF aspirin 81 mg Tablet,Delayed Release (Dr/Ec) 81 mg PO BREAKFAST Qty: 0 0RF furosemide 40 mg tablet 40 mg PO DAILY Qty: 30 0RF potassium chloride 10 mEq capsule, extended release 10 meq PO DAILY Qty: 30 0RF Continued lisinopril 20 mg tablet 20 mg PO DAILY Patient Comments: LAST NIGHT PT TOOK BP AND IT WAS HIGH, SO SHE TOOK AN EXTRA HALF, AND A COUPLE HOURS LATER, ANOTHER HALF. cholecalciferol (vitamin D3) 50 mcg (2,000 unit) tablet 2,000 unit PO DAILY multivitamin [Daily Multi-Vitamin] Tablet 1 tab PO DAILY ascorbate calcium (vitamin C) 500 mg tablet 500 mg PO DAILY coenzyme Q10 [Co Q-10] 10 mg capsule 10 mg PO DAILY magnesium 250 mg tablet 500 mg PO BID Referrals / Follow Up: Greyson Isabel MD [Primary Care Provider] - Within 2 Weeks [facility] [Provider Group] - Within 1 Month Disposition Disposition (needs filled in before D/C Order can be placed): Home, Self Care Charges/Coding Visit Charges Inpatient E&M: 66897 Disch Hosp >30min
[2023-04-22 14:45] VITALS: BP 139/83; PULSE 55; RESP 18; TEMP 36.7; O2SAT 95
[2023-04-22 16:53] VITALS: BP 161/65
== END 2023-04-22 18:46 | disposition home or self-care (01) | DRG 280 ==
LOC: ED 15:25 → PCU 15:47
PROVIDERS: Admitting Provider Internal Medicine; Emergency Provider Emergency Medicine; PCP Family Medicine
DX: I11.0 Hypertensive heart disease with heart failure (principal); I21.A1 Myocardial infarction type 2; I50.31 Acute diastolic (congestive) heart failure; Z68.41 Body mass index [BMI] 40.0-44.9, adult; I16.1 Hypertensive emergency; E66.01 Morbid (severe) obesity due to excess calories; E78.5 Hyperlipidemia, unspecified; G47.33 Obstructive sleep apnea (adult) (pediatric); Z99.89 Dependence on other enabling machines and devices; Z79.899 Other long term (current) drug therapy; Z91.199 Patient's noncompliance with other medical treatment and regimen due to unspecified reason; R79.89 Other specified abnormal findings of blood chemistry
CPT/HCPCS: 36415; 71045; 71275; 80048; 80061; 83880; 84484; 85025; 85379; 85610; 85730; 93005; 93306; 99285; Q9967; A4216; J1940

== ENCOUNTER → 2023-05-13 | Outpatient (CLI) | payer MEDICARE, OTHER, SELFPAY ==
[2023-05-13 15:58] LABS: AST(SGOT) 20 U/L (15-37); Alanine Aminotransfer ALT/SGPT 22 U/L (13-56); Albumin, Serum 3.9 g/dL (3.2-5.0); Alkaline Phosphatase 62 U/L (45-117); Anion Gap 7 (5-15); BUN 38 mg/dL (7-18); BUN/Creat Ratio 32.8 RATIO (10-20); Calcium,Total 9.3 mg/dL (8.5-10.1); Chloride 104 mmol/L (98-107); Cholesterol 279 mg/dL (200); Creatinine, Serum 1.16 mg/dL (0.55-1.02); EST Glomerular Filtration Rate 49 mL/min (>60); Est Glom Filt Rate - Afr Amer 59 mL/min (>60); Glucose 100 mg/dL (74-106); High Density Lipoprotein 61 mg/dL; Magnesium 2.7 mg/dL (1.6-2.6); Potassium 4.2 mmol/L (3.5-5.1); Protein, Total 7.9 g/dL (6.4-8.2); Sodium Level 138 mmol/L (136-145); Triglycerides 165 mg/dL; Very Low Density Lipoprotein 33 mg/dL (5-40)
== END | disposition home or self-care (01) ==
PROVIDERS: PCP Family Medicine; Referring Provider Nurse Practitioner Gerontology; Visit Provider Nurse Practitioner Gerontology
DX: I50.9 Heart failure, unspecified (principal); I21.4 Non-ST elevation (NSTEMI) myocardial infarction; E78.5 Hyperlipidemia, unspecified
CPT/HCPCS: 36415; 80048; 80061; 80076; 83735

== ENCOUNTER 2023-12-28 09:51 | Outpatient (CLI) | payer MEDICARE, OTHER, SELFPAY ==
[2023-12-28 12:41] LABS: Erythrocyte Sedimentation Rate 20 mm/hr (0-30)
[2023-12-28 12:43] LABS: Absolute Lymphocyte Count 1.92 X10^3/uL (0.83-4.51); Basophil# 0.02 X10^3/uL; Basophil% 0.4 % (0-1); Eosinophil# 0.09 X10^3/uL; Eosinophils% 1.9 % (0-5); Hematocrit 34.2 % (37-47); Hemoglobin 11.2 g/dL (12.0-15.0); Lymphocyte # 1.92 X10^3/ul (0.83-4.51); Mean Corp Hgb Conc 32.7 g/dL (32-36); Mean Corpuscular Hgb 31.6 pg (27.0-32.0); Mean Corpuscular Volume 96.6 fL (81-99); Mean Platelet Vol. 10.7 fl (6.2-12.0); Monocyte# 0.61 X10^3/uL; NRBC Flagged by Analyzer 0 % (0-5); Neutrophil # 2.02 X10^3/uL (2.7-7.7); Neutrophil % 43.3 % (47-70); Platelet Count 223 K/mm3 (150-450); RBC Distribution Width CV 13.2 % (11.6-14.6); RBC Distribution Width SD 47.1 fl (35.1-43.9); Red Blood Count 3.54 M/mm3 (4.2-5.4); White Blood Count 4.7 K/mm3 (4.4-11.0)
[2023-12-28 13:08] LABS: T3 Total - Triiodothyronine 1.38 ng/mL (0.6-1.81); Vitamin D,25 Hydroxy 29.5 ng/mL
[2023-12-28 13:16] LABS: ALB/GLOB Ratio 1.1 RATIO (0.9-2.4); AST(SGOT) 17 U/L (15-37); Alanine Aminotransfer ALT/SGPT 22 U/L (13-56); Albumin, Serum 3.6 g/dL (3.2-5.0); Alkaline Phosphatase 53 U/L (45-117); Anion Gap 6 (5-15); BUN 20 mg/dL (7-18); Calcium,Total 9.1 mg/dL (8.5-10.1); Chloride 111 mmol/L (98-107); Cholesterol 297 mg/dL (200); Creatinine, Serum 1.05 mg/dL (0.55-1.02); EST Glomerular Filtration Rate 54 mL/min (>60); Est Glom Filt Rate - Afr Amer 66 mL/min (>60); Ferritin 130 ng/mL (8-252); Globulin 3.4 g/dL (2.2-4.2); Glucose 102 mg/dL (74-106); High Density Lipoprotein 50 mg/dL; Potassium 4.2 mmol/L (3.5-5.1); Sodium Level 141 mmol/L (136-145); T4 Free Direct 0.86 ng/dL (0.76-1.46); Triglycerides 255 mg/dL; Very Low Density Lipoprotein 51 mg/dL (5-40)
[2023-12-28 13:53] LABS: Hemoglobin A1c 5.5 % (3.8-5.6)
[2023-12-29 07:08] LABS: CRP, High Sensitivity 1.84 mg/L (0.00-3.00); HOMOCYSTEINE 11.3 umol/L (0.0-19.2)
[2024-01-02 08:13] LABS: Insulin Level 20.8 uIU/mL (2.6-24.9); Lipoprotein A 100.4 nmol/L (<75.0); T3 Reverse 11.9 ng/dL (9.2-24.1)
== END 2023-12-28 23:59 | disposition home or self-care (01) ==
PROVIDERS: PCP Internal Medicine
DX: Z00.00 Encounter for general adult medical examination without abnormal findings (principal); G72.49 Other inflammatory and immune myopathies, not elsewhere classified; E03.9 Hypothyroidism, unspecified; R73.03 Prediabetes; E78.00 Pure hypercholesterolemia, unspecified
CPT/HCPCS: 36415; 80053; 80061; 82306; 82728; 83036; 83090; 83525; 83695; 84439; 84443; 84480; 84482; 85025; 85652; 86141

== ENCOUNTER → 2024-05-31 | Outpatient (CLI) | payer MEDICARE, OTHER, SELFPAY ==
[2024-05-31 15:01] LABS: Absolute Lymphocyte Count 1.88 X10^3/uL (0.83-4.51); Absolute Neutrophil Count 3.2 X10^3/uL (2.0-7.7); Basophil# 0.03 X10^3/uL; Basophil% 0.5 % (0-1); Eosinophil# 0.12 X10^3/uL; Eosinophils% 2.1 % (0-5); Hematocrit 35.3 % (37-47); Hemoglobin 11.5 g/dL (12.0-15.0); Lymphocyte # 1.88 X10^3/ul (0.83-4.51); Lymphocyte % 32.5 % (19-41); Mean Corp Hgb Conc 32.6 g/dL (32-36); Mean Corpuscular Hgb 31.8 pg (27.0-32.0); Mean Corpuscular Volume 97.5 fL (81-99); Mean Platelet Vol. 10.9 fl (6.2-12.0); Monocyte% 10.4 % (0-10); NRBC Flagged by Analyzer 0 % (0-5); Neutrophil # 3.15 X10^3/uL (2.7-7.7); Neutrophil % 54.3 % (47-70); Platelet Count 238 K/mm3 (150-450); RBC Distribution Width CV 13.1 % (11.6-14.6); Red Blood Count 3.62 M/mm3 (4.2-5.4); White Blood Count 5.8 K/mm3 (4.4-11.0)
[2024-05-31 15:21] LABS: ALB/GLOB Ratio 1.5 RATIO (0.9-2.4); AST(SGOT) 16 U/L (<=31); Alanine Aminotransfer ALT/SGPT 14 U/L (<=34); Albumin, Serum 4.3 g/dL (3.4-4.8); Alkaline Phosphatase 52 U/L (35-104); Anion Gap 12 (5-15); BUN 50 mg/dL (4-19); BUN/Creat Ratio 38.8 RATIO (10-20); Carbon Dioxide 20.9 mmol/L (21.0-32.0); Chloride 107 mmol/L (98-108); Creatinine, Serum 1.29 mg/dL (0.70-1.20); EST Glomerular Filtration Rate 43 (>60); Glucose 99 mg/dL (70-99); Potassium 4.8 mmol/L (3.3-5.1); Protein, Total 7.3 g/dL (5.9-8.4); Sodium Level 140 mmol/L (133-145); Total Bilirubin 0.26 mg/dL (0.00-1.30)
[2024-05-31 15:22] LABS: Rheumatoid Factor < 10.0 IU/mL (<15)
[2024-06-02 13:08] LABS: CCP IgG Antibodies 5 units (0-19)
[2024-06-02 15:08] LABS: Anti-Centromere B Ab <0.2 AI (0.0-0.9); Anti-Chromatin 0.2 AI (0.0-0.9); Anti-Jo <0.2 AI (0.0-0.9); Anti-Nuclear Antibody Test Positive (.); Anti-Scleroderma-70 AB <0.2 AI (0.0-0.9); Anti-dsDNA Ab 2 IU/mL (0-9); RNP Ab 0.7 AI (0.0-0.9); SJOGREN'S Anti-SS-A test 6.7 AI (0.0-0.9); SJOGREN'S Anti-SS-B test < 0.2 AI (0.0-0.9); Smith Ab <0.2 AI (0.0-0.9)
== END | disposition home or self-care (01) ==
LOC: BIMLAB 12:31
PROVIDERS: PCP Internal Medicine; Visit Provider Internal Medicine
DX: I11.0 Hypertensive heart disease with heart failure (principal); I50.9 Heart failure, unspecified; M25.50 Pain in unspecified joint
CPT/HCPCS: 36415; 80053; 85025; 86038; 86200; 86225; 86235; 86431

== ENCOUNTER → 2025-01-05 | Outpatient (CLI) | payer MEDICARE, OTHER, SELFPAY ==
[2025-01-05 15:21] LABS: Hematocrit 34.3 % (37-47); Hemoglobin 11.1 g/dL (12.0-15.0); Immature Granulocytes Count 0.010 X10^3/uL (0.0-0.0); Mean Corp Hgb Conc 32.4 g/dL (32-36); Mean Corpuscular Volume 95.8 fL (81-99); Mean Platelet Vol. 10.3 fl (6.2-12.0); NRBC Flagged by Analyzer 0 % (0-5); Platelet Count 231 K/mm3 (150-450); RBC Distribution Width CV 13.2 % (11.6-14.6); RBC Distribution Width SD 46.7 fl (35.1-43.9); Red Blood Count 3.58 M/mm3 (4.2-5.4); White Blood Count 5.7 K/mm3 (4.4-11.0)
[2025-01-05 15:45] LABS: AST(SGOT) 21 U/L (<=31); Alanine Aminotransfer ALT/SGPT 16 U/L (<=34); Albumin, Serum 4.2 g/dL (3.4-4.8); Alkaline Phosphatase 52 U/L (35-104); Anion Gap 10 (5-15); BUN 25 mg/dL (4-19); BUN/Creat Ratio 22.6 RATIO (10-20); Calcium,Total 9.4 mg/dL (7.6-11.0); Carbon Dioxide 24.8 mmol/L (21.0-32.0); Chloride 105 mmol/L (98-108); Cholesterol 271 mg/dL (<=200); Globulin 2.8 g/dL (2.2-4.2); Glucose 96 mg/dL (70-99); Low Density Lipoprotein Calc. 184 mg/dL; Potassium 4.3 mmol/L (3.3-5.1); Triglycerides 176 mg/dL; Very Low Density Lipoprotein 35 mg/dL (5-40); cholesterol:hdl ratio screen 5.00
== END | disposition home or self-care (01) ==
LOC: MTLAB 11:16
PROVIDERS: PCP Internal Medicine; Referring Provider Physician Assistant Medical; Visit Provider Physician Assistant Medical
DX: R00.2 Palpitations (principal); I10 Essential (primary) hypertension; E78.5 Hyperlipidemia, unspecified
CPT/HCPCS: 36415; 80053; 80061; 85025